=== PATIENT | male | born 1945 | race Caucasian/White ===

== ENCOUNTER 2021-02-02 08:30 | Outpatient (RCR) | payer OTHER, SELFPAY ==
--- NOTE | 2021-01-05 12:39 | PTOPEVAL ---
PHYSICAL THERAPY EVALUATION Thank you for referring William Cowan to [facility].? William was evaluated for the dx of low back and hip pain. The patient is scheduled to be seen for therapy? 2 x/week for 4 weeks. Please review, sign, date and return this plan of care PARVIZ. I agree with and certify that the following plan of care is medically necessary. Referring Physician Date Attending Provider: Monica Rivas NP *PT Outpatient Evaluation Start: 01/05/21 10:21 Freq: Status: Active Protocol: Document 01/05/21 10:21 MLV (Rec: 01/05/21 11:24 [facility] [id number]) Therapy Assessment Status Assessment Status Assessment Status Evaluation Evaluation Information Problem Diagnosis right hip and low back pain Cause no injury Additional Evaluation Detail The pt reports having some right low back trouble years ago and had PT-got better. The patient had no trouble until September 2020. The pain is at his right posterior hip to his knee and has gotten worse and now goes to his eason and has tingling/numbness. 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 The patient has been doing more of it lately. The pt also does woodcarving 1x a week and is mostly sitting. The patient does the yardwork and some cooking. The patient has pain at ant hip and SI on the right, while sitting and has pain increase when going from sit to stand. Subjective Information The pt denies hx of OA but has Query Text:As Reported By Patient/ had no recent tests. Family Diagnostic Tests X-Rays For This Problem No MRI For This Problem No Other Tests For This Problem No Pain Assessment Timing of Pain Assessment Timing of Pain Assessment Assessment Pain Scale Pain Scale Used Numeric (1 - 10) Self Report Pain Assessment Right Groin Reported Pain Level 3 Pain Description Pinching,Soreness Radicular Pain Location right leg radicular pain to eason with sit to stand Pain Frequency Acute Other Pain Description 6 with sit to stand Pain Aggravating Factors
--- NOTE | 2021-02-02 14:29 | PTOPEVAL ---
PHYSICAL THERAPY EVALUATION Thank you for referring William Cowan Jr. to [facility] The patient has completed 9 visits for the dx of back and right hip pain. Most goals are met but pain relief is limited. Recommend possible pain management for treatment if MD agrees. [facility]OR PT. Please review, sign, date and return this plan of care PARVIZ. I agree with and certify the following plan of care. Referring Physician Date Attending Provider: Monica Rivas NP Referring Provider: *PT Outpatient Discharge Start: 01/05/21 10:21 Freq: Status: Active Protocol: Document 02/02/21 14:11 MLV (Rec: 02/02/21 14:29 MLV [id number]) Therapy Assessment Status Assessment Status Assessment Status Discharge Evaluation Information Problem Diagnosis right hip and low back pain Cause no injury Additional Evaluation Detail The patient reports his pain has had times where his pain is less but for the last few days, his pain has returned despite his therapy and has not done anything to provoke increased pain. The patient agrees that he would like to discuss other options for relief with the doctor. The patient reports compliance with his exercises and does get some temporary relief with them. The patient reports the pain continues to be at his right hip and into his thigh, and mostly occurs when trying to sit for even short lengths of time. The patient gets relief of symptoms when doing shallow squats or hip extension exercises. Pain Assessment Timing of Pain Assessment Timing of Pain Assessment Assessment Pain Scale Pain Scale Used Numeric (1 - 10) Self Report Pain Assessment Right Groin Reported Pain Level 0 Pain Description Aching Pain Frequency Acute,Chronic Other Pain Description 4 with sitting Pain Aggravating Factors Sitting Pain Behaviors Restless Right Back Reported Pain Level 2 Pain Frequency Acute,Chronic Other Pain Description 5 with activity/sitting Pain Aggravating Factors Sitting Pain Behaviors Restless Pain Score Pain Score 0,2: Self Report
== END 2021-03-21 11:16 | disposition home or self-care (01) ==
LOC: ANHPT 08:30
PROVIDERS: PCP Internal Medicine; Visit Provider Nurse Practitioner
DX: M25.551 Pain in right hip (principal); M54.5 Low back pain
CPT/HCPCS: 97014; 97110; 97140; 97162; G0283

== ENCOUNTER → 2021-02-22 07:13 | Outpatient (CLI) | payer OTHER, SELFPAY ==
--- NOTE | ~2021-02-22 | MR_ITS ---
EXAMINATION: MR lumbar spine wo con DATE: 02/22/2021 08:10 INDICATION: Lumbar radiculopathy. TECHNIQUE: Magnetic resonance imaging (MRI) of the lumbar spine was performed without intravenous con trast. Sequences included sagittal T2-weighted FSE, sagittal T2-weighted FS FSE, sagittal T1-weighted FSE, and axial T2-weighted FSE. COMPARISON: None FINDINGS: There is 10 degrees dextroscoliosis of thoracolumbar spine. There is mild chronic anterior wedging of T11 vertebral body. There is moderately decreased disc height at L3-L4 and mildly decrease d disc height at L4-L5 and L5-S1. The distal spinal cord signal intensity is normal. The conus medull hunter is at L1-L2. The following disc levels are specifically discussed: L1-L2: The disc is bulging. There is mild bilateral facet joint osteoarthritis. There is mild left ne ural foraminal stenosis. There is mild central canal stenosis. L2-L3: The disc does not extend beyond the endplate margin. There is mild bilateral facet joint osteo arthritis. There is no neural foraminal stenosis. There is no central canal stenosis. L3-L4: The disc is bulging and has an annular fissure. There is moderate right and mild left facet vimal int osteoarthritis. There is mild bilateral neural foraminal stenosis. There is mild central canal st enosis. L4-L5: The disc is bulging with superimposed right foraminal extrusion. There is moderate bilateral f acet joint osteoarthritis. There is moderate right and mild left neural foraminal stenosis. There is mild central canal stenosis. There is moderate stenosis of right lateral recess. L5-S1: The disc is bulging. There is moderate bilateral facet joint osteoarthritis. There is mild compa ateral neural foraminal stenosis. There is no central canal stenosis. IMPRESSION: 1. Moderate lumbar spondylosis. 2. Thoracolumbar dextroscoliosis. Reviewed, dictated and finalized at location A. 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
--- NOTE | ~2021-02-22 | XR_ITS ---
EXAMINATION: XR sacroiliac joints min 3V INDICATION: Sacroiliac joint pain TECHNIQUE: Three views of the sacroiliac joints are obtained on four radiographs. COMPARISON: None available FINDINGS: Bone alignment is normal. There is no fracture. There is no abnormal sclerosis or erosion o f the sacroiliac joints. Phleboliths are noted in the pelvis. There is mild osteoarthritis of the hip s. IMPRESSION: 1. No acute osseous abnormality. Reviewed, dictated and finalized at location B. 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
== END ==
PROVIDERS: PCP Internal Medicine; Visit Provider Nurse Practitioner Family
DX: M53.3 Sacrococcygeal disorders, not elsewhere classified (principal); M47.26 Other spondylosis with radiculopathy, lumbar region
CPT/HCPCS: 72148; 72202

== ENCOUNTER 2021-03-16 01:01 | Day surgery (SDC) | payer OTHER, SELFPAY ==
[2021-03-01 08:22] VITALS: BMI 25.9
--- NOTE | 2021-03-15 13:18 | WPDANESEPPF ---
Anes - Initial Pre Proc Eval Procedure: Operation Date: 03/16/21 08:00 Proposed Procedures p Screening Colonoscopy - Dutch Aguiar MD Date/Time: 03/15/21 13:18 Surgeon: Dutch Aguiar MD Pre Op Diagnosis: neoplasm screening Patient Data Age: 75 Gender: M Height: 1.7 m Weight: 75 kg Allergies Allergy/AdvReac Type Severity Reaction Status Date / Time Penicillins Allergy Mild Rash Verified 03/16/21 06:53 Home Medications Medication Instructions Recorded Confirmed Type Saccharomyces boulardii 250 mg 250 mg PO DAILY 12/09/20 03/01/21 History capsule biotin 5 mg capsule 5 mg PO DAILY 12/09/20 03/01/21 History calcium carbonate-vitamin D3 500 1 cap PO DAILY 12/09/20 03/01/21 History mg (1,250 mg)-50 unit capsule guaifenesin 600 mg tablet, 600 mg PO DAILY PRN tablet 12/09/20 03/01/21 History extended release 12 hr histamine dihydrochloride 0.025 % 1 applic TOPICAL DAILY 12/09/20 03/01/21 History topical cream loratadine 10 mg tablet 10 mg PO DAILY 12/09/20 03/01/21 History multivitamin 1 tablet PO DAILY 12/09/20 03/01/21 History omega-3 fatty acids 1,000 mg 300 mg PO DAILY cap 12/09/20 03/01/21 History capsule tamsulosin 0.4 mg capsule 0.4 mg PO DAILY 12/09/20 03/01/21 History fluticasone propionate 50 1 spray INTRANASAL DAILY #16 g 12/31/20 03/01/21 Rx mcg/actuation nasal spray,suspension triamcinolone acetonide 0.1 % 1 applic TOPICAL BID #80 g 12/31/20 03/01/21 Rx topical cream azelastine 1 spray INTRANASAL Q12H 03/01/21 03/01/21 History terbinafine HCl 250 mg PO DAILY 03/01/21 03/01/21 History Patient hx anesthesia problems: none Family hx anesthesia problems: none Results Review: All pre-operative results and documents have been reviewed as part of the pre-operative evaluation. [facility] Past Medical History Medical History (Updated 03/15/21 @ 13:18 by Colin Beasley DO) Allergies Arthritis BPH (benign prostatic hyperplasia) GERD (gastroesophageal reflux disease) IBS (irritable bowel syndrome) MOE (obstructive sleep apnea) Surgical History Surgical History (Updated 12/09/20 @ 10:03 by Milagros Saunders) History of cataract removal with insertion of prosthetic lens left eye Family History Family History (Updated 12/09/20 @ 09:53 by Milagros Saunders) Father Diabetes mellitus Parkinsons Mother Depression Anxiety Alzheimers disease Grandparent Carcinoma of colon Malignant neoplasm of prostate Cardiovascular disease Social History Social History (Updated 12/09/20 @ 09:56 by Milagros Saunders) Social History: drinks 3-4 cups of tea daily and cola with alcohol Smoking status: Never smoker Alcohol intake: former Drinks per week: 7 Alcohol use details: shots of scotch or rum qd with food Living arrangements: with family Spiritual care concerns: No Anes - Eval Final PreProcedure Day of Procedure 03/15/21 13:18 Patient weight: overweight Heart: regular rate and rhythm Lungs: clear to auscultation and normal air movement Airway: Mallampati scale class II Neurological: alert and oriented Last oral intake: >/= 8 hours ASA classification: III Emergent: no Anesthetic plan: proceed Anesthesia type and monitoring: general GIVS and standard monitoring Results Review: All pre-operative results and documents have been reviewed as part of the pre-operative evaluation. Informed Consent: The patient's anesthetic plan and its attendant risks and benefits were discussed with the patient/family/POA. Questions were solicited and answers provided to the satisfaction of the patient/family/POA.
--- NOTE | 2021-03-15 15:13 | PM.HPGS ---
History of Present Illness History of Present Illness Consent: Risks, benefits, and alternatives have been discussed and questions answered. Patient agrees to proceed with procedure. Chief complaint: neoplasm screening Narrative: William Cowan Jr. is a 75 year old male Referred for colon cancer screening. Review of Systems Review of Systems: All systems reviewed & are unremarkable except as noted in HPI and below PMFSH Past Medical History Medical History Allergies Arthritis BPH (benign prostatic hyperplasia) GERD (gastroesophageal reflux disease) IBS (irritable bowel syndrome) MOE (obstructive sleep apnea) Surgical History Surgical History History of cataract removal with insertion of prosthetic lens left eye Family History Family History Father Diabetes mellitus Parkinsons Mother Depression Anxiety Alzheimers disease Grandparent Carcinoma of colon Malignant neoplasm of prostate Cardiovascular disease Social History Social History Social History: drinks 3-4 cups of tea daily and cola with alcohol Smoking status: Never smoker Alcohol intake: former Drinks per week: 7 Alcohol use details: shots of scotch or rum qd with food Living arrangements: with family Spiritual care concerns: No Meds Home Medications and Allergies Home Medications Medication Instructions Recorded Confirmed Type Saccharomyces boulardii 250 mg 250 mg PO DAILY 12/09/20 03/01/21 History capsule biotin 5 mg capsule 5 mg PO DAILY 12/09/20 03/01/21 History calcium carbonate-vitamin D3 500 1 cap PO DAILY 12/09/20 03/01/21 History mg (1,250 mg)-50 unit capsule guaifenesin 600 mg tablet, 600 mg PO DAILY PRN tablet 12/09/20 03/01/21 History extended release 12 hr histamine dihydrochloride 0.025 % 1 applic TOPICAL DAILY 12/09/20 03/01/21 History topical cream loratadine 10 mg tablet 10 mg PO DAILY 12/09/20 03/01/21 History multivitamin 1 tablet PO DAILY 12/09/20 03/01/21 History omega-3 fatty acids 1,000 mg 300 mg PO DAILY cap 12/09/20 03/01/21 History capsule tamsulosin 0.4 mg capsule 0.4 mg PO DAILY 12/09/20 03/01/21 History fluticasone propionate 50 1 spray INTRANASAL DAILY #16 g 12/31/20 03/01/21 Rx mcg/actuation nasal spray,suspension triamcinolone acetonide 0.1 % 1 applic TOPICAL BID #80 g 12/31/20 03/01/21 Rx topical cream azelastine 1 spray INTRANASAL Q12H 03/01/21 03/01/21 History terbinafine HCl 250 mg PO DAILY 03/01/21 03/01/21 History Allergies Allergy/AdvReac Type Severity Reaction Status Date / Time Penicillins Allergy Mild Rash Verified 03/16/21 06:53 Exam Resp: Auscultation: clear to auscultation bilaterally Cardio: Rate: regular rate Rhythm: regular rhythm GI: GI Palp: Yes Soft to palpation and No Tenderness to palpation present (GI) Assessment and Plan Assessment and plan (1) Screening for colon cancer: Code(s): Z12.11 - Encounter for screening for malignant neoplasm of colon Status: Acute Assessment and Plan: Colonoscopy with possible biopsy or polypectomy or cautery or injection of substances.
[2021-03-16 06:55] VITALS: BP 142/64; PULSE 61; RESP 20; TEMP 36.7; O2SAT 99; BMI 25.2
[2021-03-16] MEDS: LACTATED RINGERS 1,000 ML 150 ML IV CONT (07:04)
[2021-03-16 08:25] VITALS: BP 105/57; PULSE 53; RESP 14; O2SAT 98
[2021-03-16 08:35] VITALS: BP 114/71; PULSE 58; RESP 19; O2SAT 99
[2021-03-16 08:45] VITALS: BP 133/70; PULSE 49; RESP 18; O2SAT 99
== END 2021-03-16 08:54 | disposition home or self-care (01) ==
PROVIDERS: PCP Internal Medicine; Visit Provider Internal Medicine Gastroenterology
PROC: 0DJD8ZZ Inspection of Lower Intestinal Tract, Via Natural or Artificial Opening Endoscopic (ICD-10-PCS; CPT 45378; principal; 2021-03-16 08:00)
DX: Z12.11 Encounter for screening for malignant neoplasm of colon (principal); K57.30 Diverticulosis of large intestine without perforation or abscess without bleeding; Z86.010 Personal history of colon polyps; K58.9 Irritable bowel syndrome, unspecified; N40.0 Benign prostatic hyperplasia without lower urinary tract symptoms; K21.9 Gastro-esophageal reflux disease without esophagitis; G47.33 Obstructive sleep apnea (adult) (pediatric)
CPT/HCPCS: G0105; J2704; J7120

== ENCOUNTER 2023-04-10 00:53 | Day surgery (SDC) | payer OTHER, SELFPAY ==
[2023-03-21 12:59] VITALS: BMI 27.8
--- NOTE | 2023-04-06 08:28 | SUR.PREOP ---
Patient called regarding upcoming procedure. Reviewed preop instructions, appointment times, and procedure prep.
--- NOTE | 2023-04-06 12:48 | PM.HPGS ---
History of Present Illness History of Present Illness Consent: Risks, benefits, and alternatives have been discussed and questions answered. Patient agrees to proceed with procedure. Chief complaint: GERD Narrative: William Cowan Jr. is a 77 year old male who?has difficulty with swallowing.? He feels that there is a great deal of phlegm that accumulates in his throat.? He takes 3 different nasal inhalers for allergies. His issues are particularly bad meal times where it gives him the sensation that if he swallows and tries to breathe at the same time that something will go down the wrong way.? It also seems to make him gag at times.? While he is trying to eat he will find himself coughing spontaneously.? He has not had issues with food getting stuck on swallowing.? He does not get heartburn frequently but he has been on famotidine 10 mg a day for a few years, And recently increased it to 40 mg without any significant difference. Also, I had asked him to hold all acid reducers for a week or so prior to this procedure and he has not noticed any worsening of symptoms. He does however often get a queasy stomach which he thinks may be due to nerves. Review of Systems Review of Systems: All systems reviewed & are unremarkable except as noted in HPI and below PMFSH Past Medical History Medical History Allergies Arthritis BPH (benign prostatic hyperplasia) Enlarged prostate GERD (gastroesophageal reflux disease) IBS (irritable bowel syndrome) MOE (obstructive sleep apnea) Surgical History Surgical History History of cataract removal with insertion of prosthetic lens left eye Family History Family History Father Diabetes mellitus Parkinsons Mother Depression Anxiety Alzheimers disease Grandparent Carcinoma of colon Malignant neoplasm of prostate Cardiovascular disease Social History Social History Social History: drinks 3-4 cups of tea daily and cola with alcohol Smoking status: Never smoker Alcohol intake: current Drinks per week: 3 Alcohol use details: shots of scotch or rum qd with food Substance use type: does not use Living arrangements: with family Spiritual care concerns: No Meds Home Medications and Allergies Home Medications Medication Instructions Recorded Confirmed Type Saccharomyces boulardii 250 mg 250 mg PO DAILY 12/09/20 04/10/23 History capsule (Probiotic (S.boulardii)) calcium carbonate-vitamin D3 500 1 cap PO DAILY 12/09/20 04/10/23 History mg (1,250 mg)-50 unit capsule omega-3 fatty acids 1,000 mg 300 mg PO DAILY 12/09/20 04/10/23 History capsule (Fish Oil Concentrate) triamcinolone acetonide 0.1 % 1 applic topical BID #80 grams 12/31/20 04/10/23 Rx topical cream azelastine 137 mcg (0.1 %) nasal 1 spray intranasal Q12H 03/01/21 04/10/23 History spray aerosol terbinafine HCl 250 mg tablet 250 mg PO DIRECTED 03/01/21 04/10/23 History fluticasone propionate 50 1 spray intranasal DAILY #16 grams 10/16/22 04/10/23 Rx mcg/actuation nasal spray,suspension (Allergy Relief (fluticasone)) carboxymethylcellulose sodium 0.5 1 drp EACH EYE 4-6XD PRN Dry Eyes 01/19/23 04/10/23 History % eye drops (Refresh Tears) qrloichd-jej-wqtqk acid 0.4 1 tablet PO DAILY 01/19/23 04/10/23 History mg-lycopene 300 mcg-lutein 250 mcg tablet (CertaVite Senior) famotidine 40 mg tablet 40 mg PO BID 03/20/23 04/10/23 History ipratropium bromide 42 mcg (0.06 2 spray intranasal TID 03/20/23 04/10/23 History %) nasal spray tamsulosin 0.4 mg capsule (Flomax) 0.4 mg PO DAILY 03/20/23 04/10/23 History Allergies Allergy/AdvReac Type Severity Reaction Status Date / Time gabapentin Allergy Intermediate Rash Verified 04/10/23 06:23 Penicillins Allergy Mi
[2023-04-10 06:25] VITALS: BP 137/63; PULSE 55; RESP 17; TEMP 36.1; O2SAT 96; BMI 27.4
[2023-04-10] MEDS: LACTATED RINGERS 1,000 ML 150 ML IV CONT (06:38)
--- NOTE | 2023-04-10 07:11 | WPDANESEPPF ---
Anes - Initial Pre Proc Eval Procedure: Operation Date: 04/10/23 07:30 Proposed Procedures p Esophagogastroduodenoscopy - Dutch Aguiar MD Date/Time: 04/10/23 07:11 Surgeon: Dutch Aguiar MD Pre Op Diagnosis: GERD Patient Data Age: 77 Gender: M Height: 1.68 m Weight: 77.2 kg Last Vital Signs Temp 97 F L 04/10/23 06:25 Pulse 55 L 04/10/23 06:25 Resp 17 04/10/23 06:25 BP 137/63 04/10/23 06:25 Pulse Ox 96 04/10/23 06:25 O2 Del Method Room Air 04/10/23 06:25 Allergies Allergy/AdvReac Type Severity Reaction Status Date / Time gabapentin Allergy Intermediate Rash Verified 04/10/23 06:23 Penicillins Allergy Mild Rash Verified 04/10/23 06:23 Home Medications Medication Instructions Recorded Confirmed Type Saccharomyces boulardii 250 mg 250 mg PO DAILY 12/09/20 04/10/23 History capsule (Probiotic (S.boulardii)) calcium carbonate-vitamin D3 500 1 cap PO DAILY 12/09/20 04/10/23 History mg (1,250 mg)-50 unit capsule omega-3 fatty acids 1,000 mg 300 mg PO DAILY 12/09/20 04/10/23 History capsule (Fish Oil Concentrate) triamcinolone acetonide 0.1 % 1 applic topical BID #80 grams 12/31/20 04/10/23 Rx topical cream azelastine 137 mcg (0.1 %) nasal 1 spray intranasal Q12H 03/01/21 04/10/23 History spray aerosol terbinafine HCl 250 mg tablet 250 mg PO DIRECTED 03/01/21 04/10/23 History fluticasone propionate 50 1 spray intranasal DAILY #16 grams 10/16/22 04/10/23 Rx mcg/actuation nasal spray,suspension (Allergy Relief (fluticasone)) carboxymethylcellulose sodium 0.5 1 drp EACH EYE 4-6XD PRN Dry Eyes 01/19/23 04/10/23 History % eye drops (Refresh Tears) gyhudoaj-ict-otzig acid 0.4 1 tablet PO DAILY 01/19/23 04/10/23 History mg-lycopene 300 mcg-lutein 250 mcg tablet (CertaVite Senior) famotidine 40 mg tablet 40 mg PO BID 03/20/23 04/10/23 History ipratropium bromide 42 mcg (0.06 2 spray intranasal TID 03/20/23 04/10/23 History %) nasal spray tamsulosin 0.4 mg capsule (Flomax) 0.4 mg PO DAILY 03/20/23 04/10/23 History Patient hx anesthesia problems: none Family hx anesthesia problems: none Results Review: All pre-operative results and documents have been reviewed as part of the pre-operative evaluation. [facility] Past Medical History Medical History Allergies Arthritis BPH (benign prostatic hyperplasia) Enlarged prostate GERD (gastroesophageal reflux disease) IBS (irritable bowel syndrome) MOE (obstructive sleep apnea) Surgical History Surgical History History of cataract removal with insertion of prosthetic lens left eye Family History Family History Father Diabetes mellitus Parkinsons Mother Depression Anxiety Alzheimers disease Grandparent Carcinoma of colon Malignant neoplasm of prostate Cardiovascular disease Social History Social History Social History: drinks 3-4 cups of tea daily and cola with alcohol Smoking status: Never smoker Alcohol intake: current Drinks per week: 3 Alcohol use details: shots of scotch or rum qd with food Substance use type: does not use Living arrangements: with family Spiritual care concerns: No Anes - Eval Final PreProcedure Day of Procedure 04/10/23 07:11 Patient weight: normal Heart: regular rate and rhythm Lungs: clear to auscultation Airway: Mallampati scale class II Neurological: alert and oriented Last oral intake: >/= 8 hours ASA classification: III Emergent: no Anesthetic plan: proceed Anesthesia type and monitoring: general and standard monitoring Results Review: All pre-operative results and documents have been reviewed as part of the pre-operative evaluation. Informed Consent: The patient's anesthetic plan and its attendant risks
[2023-04-10 07:41] VITALS: BP 116/54; PULSE 60; RESP 17; O2SAT 98
[2023-04-10 07:51] VITALS: BP 115/64; PULSE 55; RESP 15; O2SAT 98
[2023-04-10 08:01] VITALS: BP 117/68; PULSE 57; RESP 20; O2SAT 98
== END 2023-04-10 08:15 | disposition home or self-care (01) ==
PROVIDERS: PCP Internal Medicine; Visit Provider Internal Medicine Gastroenterology
PROC: 0DJ08ZZ Inspection of Upper Intestinal Tract, Via Natural or Artificial Opening Endoscopic (ICD-10-PCS; CPT 43235; principal; 2023-04-10 07:30)
DX: K21.9 Gastro-esophageal reflux disease without esophagitis (principal); N40.0 Benign prostatic hyperplasia without lower urinary tract symptoms; G47.33 Obstructive sleep apnea (adult) (pediatric); K58.9 Irritable bowel syndrome, unspecified
CPT/HCPCS: 43239; 87081; J2001; J2704; J7120

== ENCOUNTER 2023-06-28 11:32 | Outpatient (CLI) | payer OTHER, SELFPAY ==
--- NOTE | 2023-07-02 22:15 | WPDSLEEPSTUD ---
Sleep Study Date of Study: 06/28/23 Ordering Provider: Chung Cornejo Interpreting Physician: Marga Dozier MD Sleep Study Type: Polysomnogram Height: 1.68 m Weight: 78.018 kg Body Mass Index: 27.7 Neck Circumference (inches): 14 [place]: 7 Reason for Sleep Study Non refreshing sleep, feeling tired even after waking History of obstructive sleep apnea, has been on CPAP Sleep History William Cowan is a 77-year-old man with a history of obstructive sleep apnea, on CPAP 5-6 years ago. He initially had under the nose mask, slept with his mouth open, used a chinstrap that led to him grinding his teeth. He tried different masks, had air blowing in his eyes and a lot of pain. His fullface mask had a problem with air leak. He has had a problem pulling his mask out at night which may be due to poor mask fit. He feels short of breath during the day, and he wonders if using PAP at night is making this worse. He was told that he swallows air at night, and this causes belching at night. He frequently wakes at night with heartburn, belching or coughing.??He does not snore and others do not tell him that he snores. He rarely has difficulty sleeping when he has a cold, fortunately has not had a cold in 6 years. He never has breathing problems at night. He never sweats excessively at night. He never notices his heart pounding or beating irregularly during the night. He frequently falls asleep during the day. He frequently falls asleep involuntarily, however never falls asleep while driving. He never experiences loss of muscle tone with strong emotion. He never has daytime difficulty at work due to excessive sleepiness. He never feels paralyzed on waking or falling asleep. He never experiences vivid dreams upon waking or falling asleep. He never feels afraid of going to sleep. He never has nightmares. He never recalls his dreams. He rarely has thoughts racing through his mind. He never feels sad or depressed. He occasionally feels anxiety. He occasionally notices parts of his body jerk. He never kicks during the night. He never feels crawling or aching feelings in his legs. He occasionally feels leg pain at night. He never has morning jaw pain, occasionally grinds his teeth at night. He rarely feels bothered by pain during the day, rarely awakened by pain during the night. He occasionally wakes up feeling stiff in the morning, and he rarely wakes feeling sore or achy. He occasional awakens with pain in his neck, spine, or joints. He has memory problems. Normal bedtime is between 8:30 p.m. and 9:30 p.m., usually falling asleep within a few minutes. Some nights, he wakes as many as 4-5 times to go to the bathroom. It takes him about 20 minutes to return to sleep. His normal wake time is between 4:00 a.m. and 4:30 a.m.. He keeps the same schedule on weekends. He estimates getting between 5 and 6 hours of sleep at night. He takes naps in the day, and he may feel refreshed after short 10-15 minute nap. He feels better in the afternoon compared to other times of day. He is drowsy upon awakening. Habits:??Tobacco: Never smoker Caffeine: 3-4 cups of tea Alcohol: 3 or 4 per week Recreational substances: none PMFSH Past Medical History Medical History Allergies Arthritis BPH (benign prostatic hyperplasia) Enlarged prostate GERD (gastroesophageal reflux disease) IBS (irritable bowel syndrome) MOE (obstructive sleep apnea) Surgical History Surgical History History of cataract removal with insertion of prosthetic lens left eye Family History Family History Father Diabetes mellitus Parkinsons Mother Depression Anxiety Alzheimers disease Grandparent Carcinoma of colon Malignant neoplasm of prostate Cardiovascular disease Social History Social History
[2023-07-02 22:35] VITALS: BMI 27.7
== END 2023-06-29 06:45 | disposition home or self-care (01) ==
LOC: ANHCSM 11:33
PROVIDERS: PCP Internal Medicine
DX: R06.3 Periodic breathing (principal)
CPT/HCPCS: 95810

== ENCOUNTER 2023-07-23 07:27 | Outpatient (CLI) | payer OTHER, SELFPAY ==
--- NOTE | 2023-07-23 07:39 | ECHO_ITS ---
Patient Info Name: William Cowan Age: 78 years : 1945 Gender: Male Ht: 66 in Wt: 170 lbs BSA: 1.91 m2 HR: 59 bpm BP: 144 / 72 mmHg Technical Quality: Fair Exam Date: 07/23/2023 7:48 AM Exam Location: Echo Lab Patient Status: Outpatient Admit Date: 07/23/2023 Staff Ordering Physician: Monica Rivas NP Supervisor [employer]: Niurka Kilgore RDCS Attending Provider: Juarez Ahuja DO Referring Physician: Rob REY; Exam Type: CA echo doppler color flow Study Info Complete two-dimensional, color flow and Doppler transthoracic echocardiogram is performed. Summary 1. Complete two-dimensional, color flow and Doppler transthoracic echocardiogram is performed. 2. Left ventricular chamber dimension is normal. 3. Left ventricular systolic function is normal, estimated at 65-70%. 4. The left ventricular diastolic function is grade I diastolic dysfunction. 5. Global longitudinal strain is normal at -19.9%. 6. There is mild aortic valve sclerosis. 7. There is trace mitral valve regurgitation. 8. There is mild tricuspid valve regurgitation. 9. No pulmonary hypertension, estimated pulmonary arterial systolic pressure is 31 mmHg. Left Ventricle Tissue doppler E/e' was not performed. Global longitudinal strain is normal at -19.9%. Left ventricular chamber dimension is normal. Left ventricular systolic function is normal, estimated at 65-70%. The left ventricular diastolic function is grade I diastolic dysfunction. Right Ventricle Right ventricular systolic function is normal and with normal TAPSE 2.4 cm. Right ventricular chamber dimension is normal. Left Atria Left atrial chamber dimension is normal. Right Atria Right atrial chamber dimension is normal. Aortic Valve The aortic valve is trileaflet. There is mild aortic valve sclerosis. There is no aortic valve stenosis. There is no aortic valve regurgitation. Pulmonic Valve There is no pulmonic regurgitation. Mitral Valve There is no mitral valve stenosis. There is trace mitral valve regurgitation. Tricuspid Valve There is mild tricuspid valve regurgitation. No pulmonary hypertension, estimated pulmonary arterial systolic pressure is 31 mmHg. Pericardium/Pleural There is no pericardial effusion. Inferior Vena Cava Normal inferior vena cava with >50% collapse upon inspiration consistent with normal right atrial pressure, 5 mmHg. Aorta The aortic root size at the sinus of Valsalva is normal. Left Ventricular Outflow Tract Name Value Normal LVOT 2D LVOT Diameter 1.9 cm LVOT Doppler LVOT Peak Gradient 4 mmHg LVOT Mean Gradient 2 mmHg LVOT VTI 24 cm LVOT VTI/AV VTI Ratio 1.2 LVOT Stroke Volume 65 ml LVOT CO 3.6 l/min LVOT CI 1.9 l/min/m2 Pulmonic Valve Name Value Normal RVOT Doppler
== END 2023-07-23 07:28 | disposition home or self-care (01) ==
PROVIDERS: PCP Internal Medicine; Visit Provider Internal Medicine
DX: R06.3 Periodic breathing (principal); I36.1 Nonrheumatic tricuspid (valve) insufficiency
CPT/HCPCS: 93306

== ENCOUNTER 2023-08-01 08:30 | Outpatient (CLI) | payer OTHER, SELFPAY ==
--- NOTE | 2023-08-09 13:21 | WPDSLEEPSTUD ---
Sleep Study Date of Study: 08/01/23 Ordering Provider: Bebe Chrsitie DO Interpreting Physician: Marga Dozier MD Sleep Study Type: ASV Height: 1.68 m Weight: 77.564 kg Body Mass Index: 27.6 Neck Circumference (inches): 14 [place]: 7 Reason for Sleep Study 06/28/2023 basic sleep study showing moderate central sleep apnea, AHI 28.2, central AHI 19.6 which is over half total AHI, desaturation to 88%. He returns for a titration. He has a history of obstructive sleep apnea, has been on CPAP, increased symptoms. 07/22/2023 - echo shows EF 64-70% Sleep History William SchafferJr ganesh is a 77-year-old man with a history of obstructive sleep apnea, on CPAP 5-6 years ago. He initially had under the nose mask, slept with his mouth open, used a chinstrap that led to him grinding his teeth. He tried different masks, had air blowing in his eyes and a lot of pain. His fullface mask had a problem with air leak. He has had a problem pulling his mask out at night which may be due to poor mask fit. He feels short of breath during the day, and he wonders if using PAP at night is making this worse. He was told that he swallows air at night, and this causes belching at night. He frequently wakes at night with heartburn, belching or coughing.??He does not snore and others do not tell him that he snores. He rarely has difficulty sleeping when he has a cold, fortunately has not had a cold in 6 years. He never has breathing problems at night. He never sweats excessively at night. He never notices his heart pounding or beating irregularly during the night. He frequently falls asleep during the day. He frequently falls asleep involuntarily, however never falls asleep while driving. He never experiences loss of muscle tone with strong emotion. He never has daytime difficulty at work due to excessive sleepiness. He never feels paralyzed on waking or falling asleep. He never experiences vivid dreams upon waking or falling asleep. He never feels afraid of going to sleep. He never has nightmares. He never recalls his dreams. He rarely has thoughts racing through his mind. He never feels sad or depressed. He occasionally feels anxiety. He occasionally notices parts of his body jerk. He never kicks during the night. He never feels crawling or aching feelings in his legs. He occasionally feels leg pain at night. He never has morning jaw pain, occasionally grinds his teeth at night. He rarely feels bothered by pain during the day, rarely awakened by pain during the night. He occasionally wakes up feeling stiff in the morning, and he rarely wakes feeling sore or achy. He occasional awakens with pain in his neck, spine, or joints. He has memory problems. Normal bedtime is between 8:30 p.m. and 9:30 p.m., usually falling asleep within a few minutes. Some nights, he wakes as many as 4-5 times to go to the bathroom. It takes him about 20 minutes to return to sleep. His normal wake time is between 4:00 a.m. and 4:30 a.m.. He keeps the same schedule on weekends. He estimates getting between 5 and 6 hours of sleep at night. He takes naps in the day, and he may feel refreshed after short 10-15 minute nap. He feels better in the afternoon compared to other times of day. He is drowsy upon awakening. Habits:??Tobacco: Never smoker Caffeine: 3-4 cups of tea Alcohol: 3 or 4 per week Recreational substances: none PMFSH Past Medical History Medical History (Updated 08/10/23 @ 13:30 by Marga Dozier MD) Allergies Arthritis BPH (benign prostatic hyperplasia) Central sleep apnea with Reji-Abarca respiration Enlarged prostate GERD (gastroesophageal reflux disease) IBS (irritable bowel syndrome) MOE (obstructive sleep apnea) Surgical History Surgical History History of cataract removal with insertion of prosthetic lens left eye Family History Family History (Reviewed 08/09/23 @ 13:25 by Marga Vazquez
[2023-08-13 10:21] VITALS: BMI 27.6
== END 2023-08-02 06:28 | disposition home or self-care (01) ==
LOC: ANHCSM 08:31
PROVIDERS: PCP Internal Medicine; Visit Provider Family Medicine
DX: R06.3 Periodic breathing (principal)
CPT/HCPCS: 95811

== ENCOUNTER 2024-02-27 11:20 | Outpatient (CLI) | payer OTHER, SELFPAY | END 2024-02-27 11:21 | disposition home or self-care (01) | LOC: ANHGOSHLAB 11:21 | PROVIDERS: PCP Family Medicine; Visit Provider Family Medicine | DX: D64.9 Anemia, unspecified (principal) | CPT/HCPCS: 36415; 82728 ==

== ENCOUNTER 2025-02-25 08:15 | Outpatient (CLI) | payer OTHER, SELFPAY ==
--- OUTSIDE RECORDS SUMMARY | 2016-11-15 05:26 | XMS_ITS | Continuity of Care Document ---
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 Name Role Phone Juarez Zhou MD Unavailable Unavailable Allergies, Adverse Reactions, Alerts Substance Reaction Status Criticality Penicillins Unknown Active No Information Medications Medication Instructions Dosage Effective Dates (start - stop) Status Comments No Drug Therapy Prescribed Procedures Procedure Date OFFICE/OUTPATIENT VISIT [facility] Advance Directives Directive Yes / No Effective Date File Name No Information Encounters Encounter Description Practice Location Reason(s) For Visit Diagnoses Date Provider Providers Copied on Encounter [facility], [address] [place] [address], [facility], tel:[phone] [facility] Degenerative arthritis of finger, right [address] [place], [place], [id number] . tel: [phone] OFFICE/OUTPA TIENT VISIT [facility], [address] [place] [address], [facility], tel:[phone] [facility] eval right shoulder/r ight hand (chief complaint) Primary osteoarthritis of right shoulderDegener ative arthritis of finger, right [address] [place], [place], [id number] . tel: [phone] Family History Family Member Type Diagnosis Age At Onset Sister Problem (finding) Alive and well Brother Problem (finding) Alive and well Immunizations Vaccine Date Status Comments pneumococcal polysaccharide vaccine, 23 valent administered Source: Other Provid er Payers Payer name Insurance type Covered republican ID Authoriza tion(s) Elvira OT [id number] Social History Type Description Quantity Date Captured Comments Alcohol Use Details Unknown Caffeine Use Details Unknown Tobacco Use Status No Information Smoking Status No Information Sex Male Chief Complaint And Reason For Visit No Information Reason For Referral Reason For Referral No Information Plan Of Treatment Date Type Action Status Referral Ordered: RADEX CANDY COMPL MINIMUM 2 VIEWS RT ordered Referral Ordered: RADEX FNGR MINIMUM 2 VIEWS RT ordered History Of Present Illness Encounter Date Complaint History Of Prese nt Illness eval right shoulder/right hand Functional Status Date Functional Assessmen t No Information Medications Administered Medication Instructions Dosage Effective Dates (start - stop) Status Comments No Drug Therapy Prescribed Instructions Date Instruction Additional Infor mation No Information Assessments Type Assessment Date assessment Degenerative arthritis of finger , right Patient Care Teams Name Effective Dates (start - stop) Status Members No Information
--- OUTSIDE RECORDS SUMMARY | 2023-09-29 15:30 | XMS_ITS ---
Author Organization [facility] [place] ([address]) Address [address] [place] [address] Care Team Providers Care Towel Hemmer Name Role Phone Juarez Ahuja Primary Care Provider Unavailab Heath Bryant Unavailable [phone] [facility], Provider Unavailable Unavailab le Allergies Allergen (clinical drug ingredient) Drug/Non Drug Allergy documented on EMR Reaction Allergy Type Onset Date Status penicillin V Penicillin V Potassium rash Drug Allergy [facility] Conversion Encounter Medications Medication SIG (Take, Route, Frequency, Duration) Notes Start Date End Date Status Clindamycin Phosphate 1 % 1 devang applied topically 2 times a day; Duration: 30 day(s) Active Clobetasol Propionate 0.05 % 1 devang applied topically 2 times a day; Duration: 14 day(s) Active Cert[employer]ite Senior/Antioxidant *Please review and pick correct strength-formulat ion from [employer] options. If intended option is not shown, discontinue and re-order from Quick Search* Active Multivitamin MULTIPLE VITAMINS 1 CAP(S) ORALLY ONCE A DAY; Duration: 30 DAY(S) *Please review and pick correct strength-formulat ion from [employer] options. If intended option is not shown, discontinue and re-order from Quick Search* Active Loratadine 10 MG 1 tab(s) orally once a day Active Triamcinolone Acetonide 0.1 % 1 devang applied topically as needed; Duration: 7 days Active Ipratropium [place] 0.06 % 2 spray(s) intranasally 3 times a day; Duration: 90 days Active Cetirizine HCl 10 MG 1 tab(s) orally once a day; Duration: 30 days Active Calcium Carbonate 850 MG 1 TAB(S) CHEWED ONCE A DAY *Please review and pick correct strength-formulat ion from [employer] options. If intended option is not shown, discontinue and re-order from Quick Search* Active Vitamin D3 500mg *Please review and pick correct strength-formulat ion from [employer] options. If intended option is not shown, discontinue and re-order from Quick Search* Active Azelastine HCl 137 MCG/SPRAY 2 spray(s) intranasally 2 times a day; Duration: 90 days Active Famotidine 20 MG 1 tab(s) orally 2 times a day Active VANICREAM MOISTURIZING CREAM N/A NECESSARY APPLY TO EXTERNAL SURFACES OFTEN NEEDED TO FACE, HANDS, FEET OR BODY FOR DAILY USE BY THE ENTIRE FAMILY; Duration: 30 DAY(S) *Please review for potential replacement for e-prescription and drug interaction check* Active Azelastine HCl 137 MCG/SPRAY 2 spray(s) intranasally 2 times a day; Duration: 30 day(s) Not-Taking Azelastine HCl 137 MCG/SPRAY 2 spray(s) intranasally 2 times a day; Duration: 90 days Not-Taking Fluticasone Propionate 50 MCG/ACT 1 spray(s) in each nostril once a day; Duration: 30 day(s) Active Tamsulosin HCl 0.4 MG 1 cap(s) orally once a day; Duration: 30 day(s) Active Terbinafine HCl 250 MG 1 tab(s) orally once a day; Duration: 42 day(s) Active Triamcinolone Acetonide 0.1 % as directed Active Social History Sex Assigned At : Social History Observation Description Sex Assigned At Male Encounters Encounter Location Date Provider Diagnosis [facility] Maldonado [address] [place] [id number] 09/29/2023 Provider [facility] Vasomotor rhinitis J30.0 ; Allergic rhinitis, unspecified J30.9 ; Gastro-esophageal reflux disease without esophagitis K21.9 and 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 Assessments Encounter Date Diagnosis (ICD Code) Assessment Notes Treatment Notes Treatment Clinical Notes Section Notes 09/29/2023 Vasomotor rhinitis (ICD-10 - J30.0) 09/29/2023 Allergic rhinitis, unspecified (ICD-10 - J30.9) 09/29/2023 Gastro-esophageal reflux disease without esophagitis (ICD-10 - K21.9) 09/29/2023 Atopic neurodermatitis (ICD-10 - L20.81) Plan Of Treatment Medication Medication Name Sig Start Date Stop Date Notes Triamcinolone Acetonide 0.1 % 1 devang applied topically as needed; Duration: 7 days Ipratropium [place] 0.06 % 2 spray(s) intranasally 3 times a day; Duration: 90 days Cetirizine HCl 10 MG 1 tab(s) orally onc e a day; Duration: 30 days Azelastine HCl 137 MCG/SPRAY 2 spray(s) intranasally 2 times a day; Duration: 90 days Famotidine 20 MG 1 tab(s) orally 2 times a day VANICREAM MOISTURIZING CREAM N/A NECESSARY APPLY TO EXTERNAL SURFACES OFTEN NEEDED TO FACE, HANDS, FEET OR BODY FOR DAILY USE BY THE ENTIRE FAMILY; Duration: 30 DAY(S) *Please review for potential replacement for e-prescription and drug interaction check* Next Appt Details Provider Name:Mila cheung, 07/27/2025 07:30:00 AM, [address] [facility], [address], [place], [address], Progress Notes * William COWAN JrDOB:[birth year] (79 yo M)Acc No.[id number]:09/29/2023 Patient: Monie William TOUSSAINT Jr Provider: Elizabeth Gregg :1945 A ge:78 Y S ex:Male Date:09/29/2023 Address:[address] [place], [place] [id number] Pcp:Juarez Ahuja Subjective: * Chief Complaints: * 1 . Multum To Medispan Conversion Encounter. * Medical History: * Medications: T aking Vitamin D3 , Notes to Pharmacist: 500mg *Please review and pick correct strength-formulation from [employer] options. If intended option is not shown, discontinue and re-order from Quick Search*, Taking Calcium Carbonate 850 MG TABLET, CHEWABLE 1 TAB(S) CHEWED ONCE A DAY , Notes to Pharmacist: *Please review and pick correct strength-formulation from [employer] options. If intended option is not shown, discontinue and re-order from Quick Search*, Taking Loratadine 10 MG Tablet 1 tab(s) orally once a day , Taking Multivitamin MULTIPLE VITAMINS CAPSULE 1 CAP(S) ORALLY ONCE A DAY , Notes to Pharmacist: *Please review and pick correct strength-formulation from [employer] options. If intended option is not shown, discontinue and re-order from Quick Search*, Taking CertaVite Senior/Antioxidant , Notes to Pharmacist: *Please review and pick correct strength-formulation from [employer] options. If intended option is not shown, discontinue and re-order from Quick Search*, Taking Clobetasol Propionate 0.05 % Cream 1 devang applied topically 2 times a day , Taking Clindamycin Phosphate 1 % Gel 1 devang applied topically 2 times a day , Taking Triamcinolone Acetonide 0.1 % Paste as directed , Taking Terbinafine HCl 250 MG Tablet 1 tab(s) orally once a day , Taking Tamsulosin HCl 0.4 MG Capsule 1 cap(s) orally once a day , Taking Fluticasone Propionate 50 MCG/ACT Suspension 1 spray(s) in each nostril once a day , Not-Taking/PRN Azelastine HCl 137 MCG/SPRAY Solution 2 spray(s) intranasally 2 times a day , Not-Taking/PRN Azelastine HCl 137 MCG/SPRAY Solution 2 spray(s) intranasally 2 times a day * Allergies: P enicillin V Potassium: rash. Objective: * Vitals: Assessment: * Assessment: 1. V asomotor rhinitis - J30.0 (Primary) 2 . A llergic rhinitis, unspecified - J30.9 3 . G ramesh-esophageal reflux disease without esophagitis - K21.9 4 . A topic neurodermatitis - L20.81 Plan: * Treatment: 2. A llergic rhinitis, unspecified Continue Cetirizine HCl Tablet, 10 MG, 1 tab(s), orally, once a day, 30 days, 30, Refills 0. ? 3. G ramesh-esophageal reflux disease without esophagitis Continue Famotidine Tablet, 20 MG, 1 tab(s), orally, 2 times a day. 4. A topic neurodermatitis Continue VANICREAM MOISTURIZING CREAM MOISTURIZING CREAM, N/A, NECESSARY, APPLY TO EXTERNAL SURFACES OFTEN NEEDED TO FACE, HANDS, FEET OR BODY, FOR DAILY USE BY THE ENTIRE FAMILY, 30 DAY(S), 1 LB. (453 G), Refills PRN, Notes to Pharmacist: *Please review for potential replacement for e-prescription and drug interaction check*; C ontinue Triamcinolone Acetonide Ointment, 0.1 %, 1 devang, applied topically, as needed, 7 days, 1, Refills 0. * Billing Information: * Visit Code: * Procedure Codes: * Electronic signature of Nilam STAFFORD-Migration on 02/25/2025 at 08:20 AM FISHING CAPTAIN Sign off status: Pending * Provider: Elizabeth spain Migration Date: 0 09/29/2023 Generated for Darcy robles/Mariola/Gigi on: 1 04/27/2024 08:20 AM FISHING CAPTAIN
--- OUTSIDE RECORDS SUMMARY | 2024-12-22 11:30 | XMS_ITS ---
Author Organization [facility] ([address]) Address [address] [place] [address] Care Team Providers Care Greek Professor Name Role Phone Juarez Ahuja Primary Care Provider Unavailab Heath Bryant Unavailable [phone] Mila Aguirre Unavailable [phone] REASON FOR VISIT Vasomotor rhinitis, trialed ipratropium bromide which has significantly improved his symptoms of phlegm surrounding meals. He has continued use as-needed. Lately feels symptoms have started to worsen, however., History of ARC, on SCIT for ~ 9 years, continues Zyrtec with minimal symptoms., History of GERD, taking OTC Pepcid with benefit, has not seen GI in many years., Red, flat rash all over with flaking, s/p dermatology evaluation and currently using an array of creams, no interval issues. Medications Medication SIG (Take, Route, Frequency, Duration) Notes Start Date End Date Status Triamcinolone Acetonide 0.1 % 1 devang applied topically as needed; Duration: 7 days Active Tadalafil 5 MG 1 tablet as needed Orally Once a day Active Aspercreme Arthritis Pain 1 % as directed Externally Active CeraVe Itch Relief 1 % 1 application as needed Externally Three times a day Active Eczema Moisturizing 1 % as directed Externally Active FAMOTIDINE 20 mg 1 tab(s) orally 2 times a day Active AZELASTINE HYDROCHLORIDE NASAL 137 mcg/inh 2 spray(s) intranasally 2 times a day; Duration: 90 days Active VANICREAM MOISTURIZING CREAM N/A as necessary Apply to external surfaces as often as needed to face, hands, feet or body For daily use by the entire family; Duration: 30 day(s) Active CETIRIZINE 10 mg 1 tab(s) orally once a day; Duration: 30 days Active Ipratropium Alto 0.06 % 2 sprays in each nostril Nasally 2-3 times per day; Duration: 30 days Active Clindamycin Phosphate 1 % 1 devang applied topically 2 times a day; Duration: 30 day(s) Not-Taking Azelastine HCl 137 MCG/SPRAY 2 spray(s) intranasally 2 times a day; Duration: 90 days Not-Taking Vitamin D3 500mg *Please review and pick correct strength-formula tion from [place] options. If intended option is not shown, discontinue and re-order from Quick Search* Not-Taking Loratadine 10 MG 1 tab(s) orally once a day Not-Taking Azelastine HCl 137 MCG/SPRAY 2 spray(s) intranasally 2 times a day; Duration: 30 day(s) Not-Taking Clobetasol Propionate 0.05 % 1 devang applied topically 2 times a day; Duration: 14 day(s) Active Tamsulosin HCl 0.4 MG 1 cap(s) orally once a day; Duration: 30 day(s) Active Terbinafine HCl 250 MG 1 tab(s) orally once a day; Duration: 42 day(s) Not-Taking Fluticasone Propionate 50 MCG/ACT 1 spray(s) in each nostril once a day; Duration: 30 day(s) Active Pramipexole Dihydrochloride 0.25 MG Oral; Duration: 90 Days Active Cetirizine HCl 10 MG 1 tab(s) orally once a day; Duration: 30 days Active Ipratropium Alto 0.06 % 2 spray(s) intranasally 3 times a day; Duration: 90 days Active Famotidine 20 MG 1 tab(s) orally 2 times a day Active Calcium Carbonate 850 MG 1 TAB(S) CHEWED ONCE A DAY *Please review and pick correct strength-formula tion from [place] options. If intended option is not shown, discontinue and re-order from Quick Search* Active Multivitamin MULTIPLE VITAMINS 1 CAP(S) ORALLY ONCE A DAY; Duration: 30 DAY(S) *Please review and pick correct strength-formula tion from ShotSpotterspan options. If intended option is not shown, discontinue and re-order from Quick Search* Active Refresh Tears 0.5 % as directed Ophthalmic Active Astepro 205.5 MCG/SPRAY 2 sprays in each nostril Nasally Once a day Active Saccharomyces boulardii Active [place] 3-5-6-7-9 Fatty Acids - as directed Orally Active Biotin 5000 MCG as directed Sublingual Active Eucrisa 2 % 1 application Externally Twice a day Active Ketotifen Fumarate 0.035 % 1 drop into affected eye Ophthalmic Twice a day Active Social History Sex Assigned At : Social History Observation Description Sex Assigned At Male Encounters Encounter Location Date Provider Diagnosis [facility] [address] [address] 12/22/2024 Mila Aguirre Vasomotor rhinitis J 30.0 ; Allergic rhinitis, unspecified J30.9 ; Gastro-esophageal reflux disease without esophagitis K21.9 ; 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 and Elevated blood-pressure reading, without diagnosis of hypertension R03.0 Assessments Encounter Date Diagnosis (ICD Code) Assessment Notes Treatment Notes Treatment Clinical Notes Section Notes 12/22/2024 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 Using Pepcid prior to meals, which has been minimally beneficial. - Continue ipratropium bromide as-needed, discussed that based on PI safety and efficacy has not been established with use > 3 weeks. He voices understanding, wants to continue use. - Continue with Pepcid BID due to GERD. It has been many years since Petey last had evaluation with GI. He also reports occasional cough while eating, he is not sure if he notes difficulty swallow. No clear triggers or associated systemic symptoms. I again recommended GI consult, he is to speak to his PCP regarding a referral. He voiced understanding. Can also consider ENT consult, which Petey is interested in. Provided list of local ENTs. - Follow-up in 6 months for further evaluation and management 12/22/2024 Allergic rhinitis, unspecified (ICD-10 - J30.9) History of allergic rhinitis with SCIT x 9 years, in the 80's-90's. - Symptoms currently well controlled with daily Zyrtec, no longer using Flonase. - Will revisit in future if symptoms, as above, remain uncontrolled - but he has no desire to resume SCIT 12/22/2024 Gastro-esophageal reflux disease without esophagitis (ICD-10 - K21.9) History of GERD, with pior EGD studies. - Currently on probiotic and daily Pepcid. Still with frequent symptoms. - Discussed consult with GI, Petey is to discuss referral with his PCP 12/22/2024 Atopic neurodermatitis (ICD-10 - L20.81) History of eczema, previously controlled with moisturization and PRN TAC, today reports he has not used a topical steroid in some time. - Continues avoidance of all products with fragrances and dyes and daily bathing and moisturizing. - Continue triamcinolone as-needed, avoiding the face and genitals. 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 Continue serial checks and follow-up with PCP Plan Of Treatment Medication Medication Name Sig Start Date Stop Date Notes Triamcinolone Acetonide 0.1 % 1 devang appl ied topically as needed; Duration: 7 days FAMOTIDINE 20 mg 1 tab(s) orally 2 ti mes a day AZELASTINE HYDROCHLORIDE JESUS AL 137 mcg/inh 2 spray(s) intranasally 2 times a day; Duration: 90 days VANICREAM MOISTURIZING CREAM N/A as necessary Apply to external surfaces as often as needed to face, hands, feet or body For daily use by the entire family; Duration: 30 day(s) CETIRIZINE 10 mg 1 tab(s) orally once a day; Duration: 30 days Ipratropium Alto 0.06 % 2 sprays in e ach nostril Nasally 2-3 times per day; Duration: 30 days Treatment Notes Assessment Notes Vasomotor rhinitis Symptoms of phlegm production and some congestion after eating, have improved significantly with ipratropium bromide. Using Pepcid prior to meals, which has been minimally beneficial. - Continue ipratropium bromide as-needed, discussed that based on PI safety and efficacy has not been established with use > 3 weeks. He voices understanding, wants to continue use. - Continue with Pepcid BID due to GERD. It has been many years since Petey last had evaluation with GI. He also reports occasional cough while eating, he is not sure if he notes difficulty swallow. No clear triggers or associated systemic symptoms. I again recommended GI consult, he is to speak to his PCP regarding a referral. He voiced understanding. Can also consider ENT consult, which Petey is interested in. Provided list of local ENTs. - Follow-up in 6 months for further evaluation and management Allergic rhinitis, unspecified History of allergic rhinitis with SCIT x 9 years, in the 80's-90's. - Symptoms currently well controlled with daily Zyrtec, no longer using Flonase. - Will revisit in future if symptoms, as above, remain uncontrolled - but he has no desire to resume SCIT Gastro-esophageal reflux dis ease without esophagitis History of GERD, with pior EGD studies. - Currently on probiotic and daily Pepcid. Still with frequent symptoms. - Discussed consult with GI, Petey is to discuss referral with his PCP Atopic neurodermatitis History of eczema, previously controlled with moisturization and PRN TAC, today reports he has not used a topical steroid in some time. - Continues avoidance of all products with fragrances and dyes and daily bathing and moisturizing. - Continue triamcinolone as-needed, avoiding the face and genitals. 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 Vasomotor rhinitis, trialed ipratropium bromide which has significantly improved his symptoms of phlegm surrounding meals. He has continued use as-needed. Lately feels symptoms have started to worsen, however.. 2. History of ARC, on SCIT for ~ 9 years, continues Zyrtec with minimal symptoms.. 3. History of GERD, taking OTC Pepcid with benefit, has not seen GI in many years.. 4. Red, flat rash all over with flaking, s/p dermatology evaluation and currently using an array of creams, no interval issues.. * HPI: * Introduction: HPI: David hernandez Petey Camryn Wolff., a 78-year-old male with past medical history significant for BPH, GERD, MOE, and ARC previously on SCIT who returns for interval evaluation and management. He is alone for today's visit. Petey returns today reporting worsening nasal drainage. He admits to being out of ipratropium bromide, though feels he has had side effects from sertraline that was recently prescribed, which he feels worsened his drainage. At a prior visit he stated that ipratropium bromide made a huge difference. He states his GERD feels like it is well controlled on Pepcid BID. He has not had GI evaluation in years. He does report occasional coughing while eating, unclear on if he feels it is difficult to swallow at time. No associated systemic symptoms, no clear trigger. H is allergy symptoms are also under control, previously on SCIT for 9 years. He is taking Zyrtec daily with benefit. In terms of his rash, he was previously seen with a flat rash on his arms. Is seen at pain clinic and thought to be related to new medication from them. He was seen by dermatology who had him on an array of creams. Has since resolvedand he continues to follow with dermatology. H istorically, he gets a lot of mucous around back of throat. Feels like it slimes over. He has a hard time eating and breathing at the same time due to the phlegm. Sometimes goes into my wind-pipe and I have a coughing fit, to bring it back up. Symptoms have been present his whole life. Does not happen with each encounter. He denies any issues swallowing. No history of food sticking. He also has history of stomach problems in the 70's-80's. 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 No other issues and has not followed since. He also has history of eczema, currently well controlled with moisturization and PRN topical TAC. Additionally, he reports coming in contact with poison rosangela two weeks ago. He is applying Calmoseptine as-needed. Today, he reports no fevers, chills, night sweats or other constitutional symptoms. * ROS: A LLERGY: itchy eyes Y es. P ositive p er the HPI and history, otherwise unremarkable. S PECIAL SENSES: Positve for n one. C ONSTITUTIONAL: Positive for n one. E NT: cold Y es. P ositive p er the HPI and history, otherwise unremarkable. R ESPIRATORY: Positive p er the HPI and history, otherwise unremakable.? O PHTHALMOLOGY: Positive for p er the HPI and history, otherwise unremarkable. i tching Y es. E NDOCRINOLOGY: polyuria Y es. P ositive for n one. ? C ARDIOLOGY: Positive for n one. G ASTROENTEROLOGY: Positive for n one. U ROLOGY: difficulty urinating Y es. f requent urination Y es. P ositive for n one. D ERMATOLOGY: dry or sensitive skin Y es. P ositive for p er the HPI and history, otherwise unremakable. N EUROLOGY: memory loss Y es. d izziness Y es. P ositive for n one. H EMATOLOGY/LYMPH: Positive for n one. M USCULOSKELETAL: Positive for n one. P SYCHOLOGY: Positive for n one. A ll other review of systems per the HPI and history, otherwise unremarkable. * Medical History: * Medications: T aking VANICREAM MOISTURIZING CREAM N/A Moisturizing Cream as necessary Apply to external surfaces as often as needed to face, hands, feet or body For daily use by the entire family , Taking FAMOTIDINE 20 mg tablet 1 tab(s) orally 2 times a day , Taking AZELASTINE HYDROCHLORIDE NASAL 137 mcg/inh spray 2 spray(s) intranasally 2 times a day , Taking CETIRIZINE 10 mg tablet 1 tab(s) orally once a day , Taking Ipratropium Alto 0.06 % Solution 2 sprays in each nostril Nasally 2-3 times per day , Taking Triamcinolone Acetonide 0.1 % Ointment 1 devang applied topically as needed , Taking Tadalafil 5 MG Tablet 1 tablet as needed Orally Once a day , Taking Aspercreme Arthritis Pain 1 % Gel as directed Externally , Taking CeraVe Itch Relief 1 % Lotion 1 application as needed Externally Three times a day , Taking Eczema Moisturizing 1 % Lotion as directed Externally , Taking Eucrisa 2 % Ointment 1 application Externally Twice a day , Taking Ketotifen Fumarate 0.035 % Solution 1 drop into affected eye Ophthalmic Twice a day , Taking Saccharomyces boulardii , Taking [place] 3-5-6-7-9 Fatty Acids - Capsule as directed Orally , Taking Refresh Tears 0.5 % Solution as directed Ophthalmic , Taking Astepro 205.5 MCG/SPRAY Solution 2 sprays in each nostril Nasally Once a day , Taking Biotin 5000 MCG Tablet Sublingual as directed Sublingual , Taking Famotidine 20 MG Tablet 1 tab(s) orally 2 times a day , Taking Cetirizine HCl 10 MG Tablet 1 tab(s) orally once a day , Taking Ipratropium Alto 0.06 % Solution 2 spray(s) intranasally 3 times a day , Taking Calcium Carbonate 850 MG TABLET, CHEWABLE 1 TAB(S) CHEWED ONCE A DAY , Notes to Pharmacist: *Please review and pick correct strength-formulation from [place] options. If intended option is not shown, discontinue and re-order from Quick Search*, Taking Multivitamin MULTIPLE VITAMINS CAPSULE 1 CAP(S) ORALLY ONCE A DAY , Notes to Pharmacist: *Please review and pick correct strength-formulation from [employer] options. If intended option is not shown, discontinue and re-order from Quick Search*, Taking Clobetasol Propionate 0.05 % Cream 1 devang applied topically 2 times a day , Taking Tamsulosin HCl 0.4 MG Capsule 1 cap(s) orally once a day , Taking Fluticasone Propionate 50 MCG/ACT Suspension 1 spray(s) in each nostril once a day , Taking Pramipexole Dihydrochloride 0.25 MG Tablet Oral , Not-Taking/PRN Terbinafine HCl 250 MG Tablet 1 tab(s) orally once a day , Not-Taking/PRN Vitamin D3 , Notes to Pharmacist: 500mg *Please review and pick correct strength- formulation from ShotSpotterspan options. If intended option is not shown, discontinue and re-order from Quick Search*, Not-Taking/PRN Loratadine 10 MG Tablet 1 tab(s) orally once a day , Not-Taking/PRN Clindamycin Phosphate 1 % Gel 1 devang applied topically 2 times a day , Not-Taking/PRN Azelastine HCl 137 MCG/SPRAY Solution 2 spray(s) intranasally 2 times a day , Not-Taking/PRN Azelastine HCl 137 MCG/SPRAY Solution 2 spray(s) intranasally 2 times a day Objective: * Vitals: * Examination: G eneral examination: General appearance: p leasant, well-developed, well-nourished , male, in no apparent distress , speaking in full sentences, wearing face covering.? HEENT: c onjunctiva are normal bilaterally. Oral cavity: n ormal, no lesions. Heart: R RR, S1-S2, no murmurs, no rubs, no gallops. Lungs: c lear to auscultation in all lung chávez, no wheezes or crackles. Neurologic exam: u nremarkable. Back: n ormal. Assessment: * Assessment: 1. V asomotor rhinitis - J30.0 (Primary) 2 . A llergic rhinitis, unspecified - J30.9 3 . G ramesh-esophageal reflux disease without esophagitis - K21.9 4 . A topic neurodermatitis - L20.81 5 . E levated blood-pressure reading, without diagnosis of hypertension - R03.0 Plan: * Treatment: 2. A llergic rhinitis, unspecified Continue CETIRIZINE tablet, 10 mg, 1 tab(s), orally, once a day, 30 days, 30, Refills 0. Notes: History of allergic rhinitis with SCIT x 9 years, in the 80's-90's. - Symptoms currently well controlled with daily Zyrtec, no longer using Flonase. - Will revisit in future if symptoms, as above, remain uncontrolled - but he has no desire to resume SCIT 3. G ramesh-esophageal reflux disease without esophagitis Continue FAMOTIDINE tablet, 20 mg, 1 tab(s), orally, 2 times a day. Notes: History of GERD, with pior EGD studies. - Currently on probiotic and daily Pepcid. Still with frequent symptoms. - Discussed consult with GI, Petey is to discuss referral with his PCP 4. A topic neurodermatitis Continue VANICREAM MOISTURIZING CREAM Moisturizing Cream, N/A, as necessary, Apply to external surfaces as often as needed to face, hands, feet or body, For daily use by the entire family, 30 day(s), 1 lb. (453 g), Refills PRN; C ontinue Triamcinolone Acetonide Ointment, 0.1 %, 1 devang, applied topically, as needed, 7 days, 1, Refills 0. Notes: History of eczema, previously controlled with moisturization and PRN TAC, today reports he has not used a topical steroid in some time. - Continues avoidance of all products with fragrances and dyes and daily bathing and moisturizing. - Continue triamcinolone as-needed, avoiding the face and genitals. 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 E levated blood-pressure reading, without diagnosis of hypertension Notes: BP elevated today without symptoms of urgency or emergency. Continue serial checks and follow-up with PCP * Procedure Codes: G 8427 DOC MEDS VERIFIED W/PT OR RE * Preventive Medicine: Counseling: D iet a s tolerated, Journal dietary and environmental contacts. E xercise C ontinue activity as usual. M edication instruction: W atch for side effects of prescribed medications, Nasal steroid/antihistamine instruction: avoid septum. E ducation: G ENERAL EDUCATION: Our staff spent an additional 30 minutes in direct contact with the patient educating them on their current diagnoses and proper treatment and prevention of symptoms and the proper use of medications, SKIN CARE EDUCATION:, Skin care regimen reviewed with patient, Daily bathing to add moisture to skin, Apply moisturizing cream head-to-toe to lock in moisture within 2 minutes of exiting bath, Avoid fragrances, dyes, preservatives in personal care products, Use topical steroids PRN to active lesions, Avoid prescribed steroid use on the face and other thin skin. E ducation 2: A RC EDUCATION: Our staff discussed the appropriate allergen avoidance measures and medication utilization including upper airway hygiene with daily nasal washes given the patient's clinical status and diagnoses. P atient education material sent to portal? Y es C are goal follow up plan BMI management provided Y es Above Normal BMI Follow-up D ietary management education, guidance, and counseling B P Management: LIFESTYLE RECOMMENDATION: H ypertension education REFERRAL TO ALTERNATIVE / PRIMARY CARE PROVIDER: R teraerral to general practitioner * Follow Up: 6 Months (Reason: Evaluation and Management) * Billing Information: * Visit Code: 93305 Office Visit, Est Pt., Level 4. Modifiers: 25 * Procedure Codes: G8427 DOC MEDS VERIFIED W/PT OR RE. * Electronic signature of Mila Aguirre DNP, FNP-C on 02/25/2025 at 08:21 AM STOCK BLENDER Sign off status: Pending * Provider: VIRI FarrarC Date: 0 12/22/2024 Generated for Darcy robles/Mariola/Calebsmitting on: 1 04/27/2024 08:21 AM STOCK BLENDER History and Physical Notes * HPI (History of Present Illness) Category Sub-Category Detail Notes Category Not es *Introduction HPI: William Angelo Kamaljit aragon Jr., a 78-year-old male with past medical history significant for BPH, GERD, MOE, and ARC previously on SCIT who returns for interval evaluation and management. He is alone for today's visit. Petey returns today reporting worsening nasal drainage. He admits to being out of ipratropium bromide, though feels he has had side effects from sertraline that was recently prescribed, which he feels worsened his drainage. At a prior visit he stated that ipratropium bromide made a huge difference. He states his GERD feels like it is well controlled on Pepcid BID. He has not had GI evaluation in years. He does report occasional coughing while eating, unclear on if he feels it is difficult to swallow at time. No associated systemic symptoms, no clear trigger. His allergy symptoms are also under control, previously on SCIT for 9 years. He is taking Zyrtec daily with benefit. In terms of his rash, he was previously seen with a flat rash on his arms. Is seen at pain clinic and thought to be related to new medication from them. He was seen by dermatology who had him on an array of creams. Has since resolvedand he continues to follow with dermatology. Historically, he gets a lot of mucous around back of throat. Feels like it slimes over. He has a hard time eating and breathing at the same time due to the phlegm. Sometimes goes into my wind-pipe and I have a coughing fit, to bring it back up. Symptoms have been present his whole life. Does not happen with each encounter. He denies any issues swallowing. No history of food sticking. He also has history of stomach problems in the 70's-80's. 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 No other issues and has not followed since. He also has history of eczema, currently well controlled with moisturization and PRN topical TAC. Additionally, he reports coming in contact with poison rosangela two weeks ago. He is applying Calmoseptine as-needed. Today, he reports no fevers, chills, night sweats or other constitutional symptoms Examination Category Sub-Category Detail Notes Category Not es General examination HEENT: conjunctiva are dane l bilaterally Heart: RRR, S1-S2, no murmu rs, no rubs, no gallops Lungs: clear to auscultatio n in all lung chávez, no wheezes or crackles General appearance: pleasant, well-devel oped, well-nourished , male, in no apparent distress , speaking in full sentences, wearing face covering Neurologic exam: unremarkable Oral cavity: normal, no lesions Back: normal
--- OUTSIDE RECORDS SUMMARY | 2025-01-19 11:30 | XMS_ITS ---
Author Organization [facility] [place] ([address]) Address [address] [facility] [address] [place] [address] Care Team Providers Care Wireless Communications Engineer Name Role Phone Juarez Ahuja Primary Care Provider UnavailHeath Faust Unavailable [phone] Mila Aguirre Unavailable [phone] REASON FOR VISIT ARC follow-up Social History Sex Assigned At : Social History Observation Description Sex Assigned At Male Encounters Encounter Location Date Provider Diagnosis [facility] [address] [place] [address] 01/19/2025 Mila Aguirre Plan Of Treatment Next Appt Details Provider Name:Mila cheung, 07/27/2025 07:30:00 AM, [address] [facility] [address], [place], [address], Progress Notes * William COWAN JrDOB:[birth year] (79 yo M)Acc No.[id number]:01/19/2025 Progress Notes Patient: Monie William TOUSSAINT Jr Provider: Fabian Aguirre DNP MEAT CUTTER-C :1945 A ge:79 Y S ex:Male Date:01/19/2025 [facility] [id number] Pcp:Juarez Ahuja Subjective: * Chief Complaints: * 1 . ARC follow-up. * Medical History: Objective: * Vitals: Assessment: Plan: * Treatment: * Billing Information: * Visit Code: * Procedure Codes: * Electronic signature of Mila Aguirre DNP, FNP-C on 02/25/2025 at 08:21 AM END MAKER Sign off status: Pending * Provider: VIRI Farrar-C Date: Generated for Darcy robles/Mariola/Calebsmdany on: 04/27/2024 08:21 AM END MAKER
--- NOTE | ~2025-02-25 | NM_ITS ---
EXAMINATION: NM josse stress w perfusion DATE: 02/25/2025 13:03 INDICATION: Shortness of breath TECHNIQUE: Rest images were obtained following intravenous administration of 11 mCi Tc99m tetrofosmin (Myoview). The patient was infused intravenously with Lexiscan (Regadenoson). Then, 31 mCi Tc99m tetrofosmin (Myoview) was administered intravenously, and stress images were obtained. Data was reconstr ucted into short axis and horizontal and vertical long axis SPECT images. Gated SPECT images were also obtained. COMPARISON: None. FINDINGS: There is a small mild nonreversible perfusion defect at the mid inferoseptal segment consistent with infarct. No definitive reversible ischemia. There is normal left ventricular chamber size, wall motion and ejection fraction. Left ventricular ejection fraction measures >70%. IMPRESSION: 1. 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 No reversible ischemia. 2. Left ventricular ejection fraction measuring >70%. Reviewed, dictated and finalized at location A. [employer] IMPRESSION: 1. 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 No reversi ble ischemia. 2. Left ventricular ejection fraction measuring >70%.
--- OUTSIDE RECORDS SUMMARY | 2025-02-25 08:21 | XMS_ITS | Data Portability ---
Author Organization [facility] (11) Address [address] [place] [address] Care Team Providers Care Oil Burner Installer Name Role Phone CORI PAVON Referring Provider Assessment No assessment recorded. Plan of Treatment Reminders Order Date Submit Date Provider Last Modified By Organization Details Last Modified Time Details Appointments None record ed. Lab None record ed. Referral None record ed. Procedures None record ed. Surgeries None record ed. Imaging None record ed. Medication Orders None record ed. Patient TargetsNo targets recorded. Patient InstructionsNo instructions recorded. Reason for Referral None Reported. Procedures Surgical History Date Name Laterality Status Provider Name and Address Organization Details Recorded Time 01/22/2018 Sleep Study completed Vinay Haddad [address] [address], [place], [address], [facility] 01/23/2018 22:35:04 Imaging Results None recorded. Procedure Notes None recorded. Medical Equipment None Reported. Medications Name Sig Start Date Stop Date Status Note LastModified by Organization Details LastModified Time tamsulosin 0.4 mg capsule active Not Available Not Available N ot Available triamcinolone acetonide 0.1 % topical ointment active Not Available Not Available Not Available fluticasone propionate 50 mcg/actuation nasal spray,suspensio n active Not Available Not Available Not Available clotrimazole 1 % topical cream active Not Available Not Availa ble Not Available Vitals Date Recorded Body height Body mass index (BMI) Body weight Provider Name and Address Organization Details Last Updated DateTime 01/22/2018 167.64 cm 26.3 kg/m2 01467.56 g Jeremiah Javier [facility] 01/22/2018 12:46:52 Social History None recorded. Functional Status None recorded. Mental Status None recorded. Family History Nothing Reported. Medical History No medical history recorded. Past Encounters Encounter ID Performer Location Encounter Start Date Encounter Closed Date Diagnosis/Indication Diagnosis SNOMED-CT Code Diagnosis ICD10 Code Diagnosis IMO Codes Diagnosis Note [id number] [facility] [place], [facility] CSI 11) [id number] [facility] [address] [place] [address] 01/22/2018 12:16:23 01/23/2018 22:09:58 Obstructive sleep apnea of adult 0668738821 103 G47.33 [id number] [facility] CSI (16) [id number] [facility] [address] [place] [address] 06/04/2018 11:42:53 06/04/2018 12:40:02 Health Concerns Section Related Observation LastModified by Organization Detai ls LastModified Time None Recorded Concern Status LastModified by Organization Details LastModified Time None Recorded Advance Directives Directive None Recorded Payers Insurance Date Sequence Insurance Name Policy Number Policy Vidal Covered Member ID Vidal Member ID Guarantor Name 06/04/2018 1 [facility] (MEDICARE REPLACEMENT HMO) [id number] William K Camryn [id number] William Cowan Notes Date Note Type Note Provider Name and Address Organization Details Recorded Time 8 text/html HST SetupReported by PatientEquipment InstructionsFor hst set up, patient reportsdemonstrated to patient how to set up home sleep test device. the patient was able to return demonstration with out difficulty.andthe patient is returning the device the following morning.. Anish Negro MD [facility] [id number] [address] [place] [address], [place], [address], [place] - [facility] 01/24/2018 10:42:36 9 text/html pt picked up trial provent pack. instruction went well. bg Nathaly ryan, [place] - [facility] 06/04/2018 12:39:09
--- OUTSIDE RECORDS SUMMARY | 2025-02-25 08:21 | XMS_ITS | Clinical Summary ---
Author Organization [facility] Address [address] [place] [address] Care Team Providers Care Rail Grinder Name Role Phone Juarez Ahuja DO Primary Care Provider [phone] [facility],non-owned Affiliates and Associated Physician Practices is amultiple site organization consisting of ambulatory clinics and hospital sitesin [place], [place], [place] and [place]. This disclosure is being madepursuant to the Care Everywhere program and may not contain all information available regarding this patient. Last updated 18.[facility] Allergies Active Allergy Reactions Criticality Noted Date Comments Penicillins Rash Low 02/25/2013 Medications * Be aware that medications may not be up to date on this document. Alwaysverify current medications with the patient. tamsulosin (Flomax) 0.4 MG capsule Take 1 (one) capsule by mouth at bedtime At the same time every day after a meal. Active terbinafine (LamISIL) 250 MG tablet Take 1 (one) tablet by mouth once daily For 7 days on/once a month for toenail fungus Active Multiple Vitamin (MULTI-VITAMIN DAILY PO) Take 1 tablet by mouth once daily Active CALCIUM PO Take 1 tablet by mouth once daily Active [place]-3 Fatty Acids (fish oil delayed release) 1000 MG capsule Take 2 (two) capsules by mouth daily with food Active Famotidine (PEPCID PO) Take 20 mg by mouth once daily Active oxyCODONE-acetam inophen (Percocet) 5-325 MG tabletIndication s:Benign prostatic hyperplasia with weak urinary stream Take 1 (one) tablet by mouth every 6 hours as needed for Pain 6 tablet 3 Active sulfamethoxazole -trimethoprim (Bactrim DS; Septra DS) 800-160 MG tablet Take 1 (one) tablet by mouth every 12 hours 6 tablet 3 Active Active Problems Problem Noted Date Diagnosed Date Benign prostatic hyperplasia with weak urinary s tream 08/17/2022 Social History Tobacco Use Types Packs/Day Years Used Date Smoking Tobacco: Never Smokeless Tobacco: Never Alcohol Use Standard Drinks/Week Comments Yes 0 (1 standard drink = 0.6 oz pur e alcohol) 3 drinks/week Hunger Vital Sign Answer Date Recorded Within the past 12 months, y ou worried that your food would run out before you got the money to buy more. Never true 08/19/19 23 Within the past 12 months, t he food you bought just didn't last and you didn't have money to get more. Never true 08/18/2022 Sex and Gender Information Value Date Recorded Sex Assigned at Not on file Legal Sex Male 6:25 AM TELEPHONE INTERVIEWER Gender Identity Not on file Sexual Orientation Not on file Last Filed Vital Signs Vital Sign Reading Time Taken Comments Blood Pressure 139/63 08/18/2022 7:35 AM CDT Pulse 66 08/18/2022 7:35 AM CDT Temperature 36.4 C (97.5 F) 08/18/2022 7:35 AM CDT Respiratory Rate 18 08/18/2022 7:35 AM CDT Oxygen Saturation 97% 08/18/2022 7:35 AM CDT Inhaled Oxygen Concentration - - Weight 76.7 kg (169 lb) 08/17/2022 1:20 PM CDT Height 167.6 cm (5' 6) 08/17/2022 1:20 PM CDT Body Mass Index 27.28 08/17/2022 1:20 PM CDT Plan of Treatment Health Maintenance Due Date Last Done Comments MEDICARE AWV 12 MONTHS 1945 HEPATITIS C SCREENING 07/02/1964 DTAP/TDAP/TD VACCINES (1 - Tdap) 1965 PNEUMOCOCCAL VACCINE 50+ (1 of 1 - PCV) 1996 ZOSTER VACCINE (1 of 2) 1996 Respiratory Syncytial Virus (RSV) Vaccine Pt: or over 60 yrs (1 - 1-dose 75+ series) 2021 DEPRESSION SCREENING 04/16/2024 COVID-19 VACCINE (2023-2 5 season) 2024 INFLUENZA VACCINE (#1) 2024 HEPATITIS B VACCINE Aged Out No longe r eligible based on patient's age to complete this topic HIB VACCINE Aged Out No longer eligi ble based on patient's age to complete this topic HPV VACCINE Aged Out No longer eligi ble based on patient's age to complete this topic MENINGOCOCCAL (Group B) VACC INE SHARED DECISION-MAKING Aged Out No longer eligibl e based on patient's age to complete this topic MENINGOCOCCAL GROUPS A/C/Y/W VACCINE Aged Out No longer eligible b ased on patient's age to complete this topic Insurance [facility] MEDICARE Advance Directives * Full Code (Latest Code Status on File) Date Activated Date Inactivated Comments 08/17/2022 3:34 PM 08/18/2022 12:35 PM Care Teams Rail Grinder Relationship Specialty Start Date End Date Juarez Ahuja DO PCP - General Internal Medicine 08/15/22
--- OUTSIDE RECORDS SUMMARY | 2025-02-25 08:22 | XMS_ITS | Clinical Summary ---
Author Organization [facility] Address [address] [facility] [place] [address] Care Team Providers Care Physical Integration Practitioner Name Role Phone Monica Rivas NP Primary Care Provider [phone] Allergies Active Allergy Reactions Criticality Noted Date Comments Penicillin G Potassium In D5w Rash Medium 2022 Penicillin V Rash Medium 07/01/2008 Medications ipratropium (ATROVENT) 42 mcg (0.06 %) nasal sprayIndications :rhinorrhea Administer 2 sprays into each nostril 3 (three) times a day 3 Active fluticasone propionate (FLONASE) 50 mcg/actuation nasal sprayIndications :Allergic Rhinitis Administer 1 spray into each nostril nightly Active azelastine (ASTELIN) 137 mcg (0.1 %) nasal sprayIndications :Seasonal Allergic Rhinitis Administer 2 sprays into each nostril 2 (two) times a day 3 Active clotrimazole 1 % cream Apply 1 Application topically as needed (eczema) Active triamcinolone (KENALOG) 0.1 % ointment Apply 1 Application topically as needed for irritation or rash 3 Active tamsulosin (FLOMAX) 0.4 mg extended release capsuleIndicatio ns:benign prostatic hyperplasia with lower urinary tract sx,prostate Take 1 capsule (0.4 mg total) by mouth daily after lunch Active terbinafine (LamiSIL) 250 mg tabletIndication s:Onychomycosis, Skin/Soft Tissue Infection Take 1 tablet (250 mg total) by mouth as needed (7 pills a month) Active calcium carbonate (OS-ZHEN) 1,250 mg (500 mg elemental) tabletIndication s:supplement Take 1 tablet (1,250 mg total) by mouth every morning Active Bacillus coagulans (PROBIOTIC, B. COAGULANS, ORAL)Indications :gut health Take 1 tablet by mouth every morning Active ACID WAFER LINE WORKER, FAMOTIDINE, ORALIndications: heartburn Take 2 tablets by mouth every morning Active ibuprofen 200 mg tab/cap Take 1 tablet/capsule (200 mg total) by mouth every 6 (six) hours as needed for pain Active Prolensa 0.07 % dropsIndications :pre-op 4 Active moxifloxacin (VIGAMOX) 0.5 % ophthalmic solutionIndicati ons:pre-op 4 Active prednisoLONE acetate (PRED FORTE) 1 % ophthalmic suspension Administer 1 drop into the right eye 4 (four) times a day 5 mL 1 4 Active Active Problems Problem Noted Date Diagnosed Date MOE (obstructive sleep apnea) 04/11/2023 Resolved Problems Problem Noted Date Diagnosed Date Resolved Date Nuclear sclerotic cataract of right eye 04/18/2023 05/09/2023 Surgical History Surgery Date Site/Laterality Comments COLONOSCOPY 03/16/2023 - 04/15/2023 ESOPHAGOGASTRODUODENOSCOPY 03/16/2023 - 04/15/2023 BACK SURGERY mass removal unknown date CATARACT EXTRACTION 04/16/2010 - 04/15/2011 Left Medical History Medical History Date Comments Sleep apnea Family History Medical History Relation Name Comments Anesthesia problems Neg Hx Social History Tobacco Use Types Packs/Day Years Used Date Smoking Tobacco: Never Smokeless Tobacco: Never AUDIT-C Answer Date Recorded Q1: How often do you have a drink containing alc ohol? 2-3 times a week 05/03/2023 Q2: How many drinks containi ng alcohol do you have on a typical day when you are drinking? 1 or 2 05/03/2023 Q3: How often do you have si x or more drinks on one occasion? Never 05/03/2023 Personal Safety Answer Date Recorded Have you ever been in or are you currently in a harmful physical or emotional relationship or is someone making you feel afraid or unsafe? Denies 05/25/2023 Sex and Gender Information Value Date Recorded Sex Assigned at Not on file Legal Sex Male 11:53 PM TELEVISION PARTS TESTER Gender Identity Not on file Sexual Orientation Not on file Last Filed Vital Signs Vital Sign Reading Time Taken Comments Blood Pressure 117/60 05/25/2023 10:50 AM TELEVISION PARTS TESTER Pulse 51 05/25/2023 11:15 AM TELEVISION PARTS TESTER Temperature 36.2 C (97.2 F) 05/25/2023 9:55 AM TELEVISION PARTS TESTER Respiratory Rate 19 05/25/2023 11:15 AM TELEVISION PARTS TESTER Oxygen Saturation 96% 05/25/2023 11:15 AM TELEVISION PARTS TESTER Inhaled Oxygen Concentration - - Weight 77.1 kg (170 lb) 05/03/2023 2:55 PM TELEVISION PARTS TESTER Height 168.9 cm (5' 6.5) 05/03/2023 2:55 PM TELEVISION PARTS TESTER Body Mass Index 27.03 05/03/2023 2:55 PM TELEVISION PARTS TESTER Plan of Treatment Health Maintenance Due Date Last Done Comments Depression Screening 1945 Hepatitis C Screening 1945 DTaP/Tdap/Td Vaccine (1 - Tdap) 1957 Hepatitis B Screening 1964 Pneumococcal vaccine 65+ (1 of 2 - PCV) 1965 Zoster Vaccine (1 of 2) 1996 Well Visit 65+ 07/08/2011 Fall Risk Assessment 05/25/2024 05/25/2023 Influenza Vaccine (#1) 2024 Medical Devices Implanted Type Area Theater Technician Device Identifier Shelf Expiration Date Model / Serial / Lot [employer] Lens Iol Tecnis Smplcty 1-Pc Clr Kinney 16.0 Diopter [id number] - [id number] - [id number] Implanted:Qty: 1 on 05/09/2023 by Kye Ponce MD at [facility] Lens Right: Eye [employer] [id number] 05/06/2025 [id number] / [id number] / 0 Insurance [facility] [place] [address] [facility] Member Subscriber Plan / Payer (Ef fective 2022-Present) Name:William Cowan Jr Relation to Subscriber:Self Name:William Cowan Jr Payer ID:[id number] (NAIC) Type:MEDICARE RISK OTHER Address: [place] [id number] Advance Directives For more information, please contact: [phone] Documents on File Type Date Recorded Patient Medical Staffing Coordinator Expl anation ADVANCE DIRECTIVE 05/09/2023 6:49 AM Power of Supervisor Rough End-Medical * Full Code (Latest Code Status on File) Date Activated Date Inactivated Comments 05/09/2023 6:41 AM 05/09/2023 2:49 PM Care Teams Physical Integration Practitioner Relationship Specialty Start Date End Date Monica Rivas NP PCP - General Nurse Practitioner 01/03/23
--- OUTSIDE RECORDS SUMMARY | 2025-02-25 08:22 | XMS_ITS | Patient Health Record ---
Author Organization [facility] ([address]) Address [address] [place] [address] Care Team Providers Care Conference Services Manager Name Role Phone Juarez Ahuja Primary Care Provider Unavailab Heath Bryant Unavailable [phone] Devin Tinajero Unavailable [phone] Mila Aguirre Unavailable [phone] Allergies Allergen (clinical drug ingredient) Drug/Non Drug Allergy documented on EMR Reaction Allergy Type Onset Date Status penicillin V Penicillin V Potassium rash Drug Allergy Active Reason For Referral Referring Provider First Name Juarez Referring Provider Last Name Leigha Referring Provider Speciality Internal M edicine Referred Organization [facility] Referred Provider Heath Moreno Referred Address [address] [place], [place],[address], Referred Provider Specialty Allergy/Immu nology Referral Priority Routine Reason Dysphagia Referral Organization [facility] Referring Provider First Name Mila Referring Provider Last Name Carla Referring Provider Speciality Allergy/Im munology Referred Provider Delilah Rodriguez Referred Provider Specialty Gastroentero logy Referral Priority Routine Medications Medication SIG (Take, Route, Frequency, Duration) Notes Start Date End Date Status Eczema Moisturizing 1 % as directed Externally Active Azelastine HCl 137 MCG/SPRAY 2 spray(s) intranasally 2 times a day; Duration: 30 day(s) Not-Taking Eucrisa 2 % 1 application Externally Twice a day Active Ketotifen Fumarate 0.035 % 1 drop into affected eye Ophthalmic Twice a day Active Saccharomyces boulardii Active Vitamin D3 500mg *Please review and pick correct strength-formula tion from [employer] options. If intended option is not shown, discontinue and re-order from Quick Search* Not-Taking Loratadine 10 MG 1 tab(s) orally once a day Not-Taking Azelastine HCl 137 MCG/SPRAY 2 sprays in each nostril Nasally Twice a day; Duration: 90 days 01/27/2025 Active Aspercreme Arthritis Pain 1 % as directed Externally Active Clindamycin Phosphate 1 % 1 devang applied topically 2 times a day; Duration: 30 day(s) Not-Taking CeraVe Itch Relief 1 % 1 application as needed Externally Three times a day Active Azelastine HCl 137 MCG/SPRAY 2 spray(s) intranasally 2 times a day; Duration: 90 days Not-Taking Acme 3-5-6-7-9 Fatty Acids - as directed Orally Active Refresh Tears 0.5 % as directed Ophthalmic Active Astepro 205.5 MCG/SPRAY 2 sprays in each nostril Nasally Once a day Active Biotin 5000 MCG as directed Sublingual Active Triamcinolone Acetonide 0.1 % 1 devang applied topically as needed; Duration: 7 days Active Multivitamin MULTIPLE VITAMINS 1 CAP(S) ORALLY ONCE A DAY; Duration: 30 DAY(S) *Please review and pick correct strength-formula tion from [employer] options. If intended option is not shown, discontinue and re-order from Quick Search* Active Clobetasol Propionate 0.05 % 1 devang applied topically 2 times a day; Duration: 14 day(s) Active Ipratropium [place] 0.06 % 2 sprays in each nostril Nasally 2-3 times per day; Duration: 30 days Active Tamsulosin HCl 0.4 MG 1 cap(s) orally once a day; Duration: 30 day(s) Active CETIRIZINE 10 mg 1 tab(s) orally once a day; Duration: 30 days Active Fluticasone Propionate 50 MCG/ACT 1 spray(s) in each nostril once a day; Duration: 30 day(s) Active FAMOTIDINE 20 mg 1 tab(s) orally 2 times a day Active Famotidine 20 MG 1 tab(s) orally 2 times a day Active VANICREAM MOISTURIZING CREAM N/A as necessary Apply to external surfaces as often as needed to face, hands, feet or body For daily use by the entire family; Duration: 30 day(s) Active Cetirizine HCl 10 MG 1 tab(s) orally once a day; Duration: 30 days Active Calcium Carbonate 850 MG 1 TAB(S) CHEWED ONCE A DAY *Please review and pick correct strength-formula tion from [employer] options. If intended option is not shown, discontinue and re-order from Quick Search* Active Tadalafil 5 MG 1 tablet as needed Orally Once a day Active Pramipexole Dihydrochloride 0.25 MG Oral; Duration: 90 Days Active Terbinafine HCl 250 MG 1 tab(s) orally once a day; Duration: 42 day(s) Not-Taking Immunizations Vaccine Route Administration Date Status Comme nts NOC Pneumovax 23 Unknown 01/10/2019 Administered Covid 19 (Pfizer) Unknown 06/10/2020 Administered Covid 19 (Pfizer) Unknown 07/01/2020 Administered FLUZONE High-Dose Quadrivalent Unknown 01/03/2021 Admin istered Social History Tobacco Use: Social History Observation Description Date Details (start date - stop date) Never Smoker NA - NA Sex Assigned At : Social History Observation Description Sex Assigned At Male Tobacco Control (Standard) Question Answer Notes Tobacco use: Nonsmoker AUDIT-C (Standard) Question Answer Notes Did you have a drink containing alcohol in the p ast year? 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) Active confirmed Problem Congenital spondylolisthesis (22630551) Congenital spondylolisthesis (Q76.2) Active confirmed Problem Elevated blood pressure reading without diagnosis of hypertension (745404596) Elevated blood-pressure reading, without diagnosis of hypertension (R03.0) Active confirmed Problem Allergic rhinitis (18435002) Allergic rhinitis, unspecified (J30.9) Active confirmed Problem Benign prostatic hypertrophy without outflow obstruction (680862602) Benign prostatic hyperplasia without lower urinary tract symptoms (N40.0) Active confirmed Vital Signs Blood pressure diastolic 64 mm Hg 01/27/2025 Oximetry 95 % 01/27/2025 Height 66.5 in 01/27/2025 Blood pressure systolic 123 mm Hg 01/27/2025 Weight 173.6 lbs 01/27/2025 BMI 27.6 kg/m2 01/27/2025 Encounters Encounter Location Date Provider Diagnosis [facility] [address] [place] [id number] 01/27/2025 Mila Aguirre Vasomotor rhinitis J 30.0 ; Allergic rhinitis, unspecified J30.9 ; Gastro-esophageal reflux disease without esophagitis K21.9 ; 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 and Elevated blood-pressure reading, without diagnosis of hypertension R03.0 [facility] [address] [place] [phone] 06/23/2024 Mila Aguirre Vasomotor rhinitis J 30.0 ; Allergic rhinitis, unspecified J30.9 ; Gastro-esophageal reflux disease without esophagitis K21.9 ; 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 and Elevated blood-pressure reading, without diagnosis of hypertension R03.0 [facility] [address] [place] [address] 01/27/2025 Mila Aguirre [facility] [address] [place] [address] 12/22/2024 Devin Tinajero Assessments Encounter Date Diagnosis (ICD Code) Assessment Notes Treatment Notes Treatment Clinical Notes Section Notes 06/23/2024 Vasomotor rhinitis (ICD-10 - J30.0) Symptoms of [...] 6 months for further evaluation and management 06/23/2024 Allergic rhinitis, unspecified (ICD-10 - J30.9) History of allergic rhinitis with SCIT x 9 years, in the s-s. - Symptoms currently well controlled with daily Zyrtec, no longer using Flonase. - Will revisit in future if symptoms, as above, remain uncontrolled - but he has no desire to resume SCIT 01/27/2025 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 Using Pepcid prior to meals, which has been minimally beneficial. - Petey recently underwent a sinus surgery in November, which he feels has been beneficial. He is using AStepro OTC with benefit, order sent for azelastine today. - Continue with Pepcid BID due to GERD. It has been many years since Petey last had evaluation with GI. He also reports occasional cough while eating, he is not sure if he notes difficulty swallow. No clear triggers or associated systemic symptoms. I again recommended GI consult, he is to speak to his PCP regarding a referral. He voiced understanding. I am sending this report to his PCP as well. - Follow-up in 6 months for further evaluation and management 01/27/2025 Allergic rhinitis, unspecified (ICD-10 - J30.9) History of allergic rhinitis with SCIT x 9 years, in the -. - Symptoms currently well controlled with daily Zyrtec, no longer using Flonase. - Will revisit in future if symptoms, as above, remain uncontrolled - but he has no desire to resume SCIT 01/27/2025 Gastro-esophageal reflux disease without esophagitis (ICD-10 - K21.9) History of GERD, with pior EGD studies. - Currently on probiotic and daily Pepcid. Still with frequent symptoms. - Discussed consult with GI, Petey is to discuss referral with his PCP 06/23/2024 Gastro-esophageal reflux disease without esophagitis (ICD-10 - K21.9) History of GERD, with pior EGD studies. - Currently on probiotic and daily Pepcid. Still with frequent symptoms. - Discussed consult with Petey FLORES is to discuss referral with his PCP 06/23/2024 Atopic neurodermatitis (ICD-10 - L20.81) History of eczema, previously controlled with moisturization and PRN TAC, today reports he has not used a topical steroid in some time. - Continues avoidance of all products with fragrances and dyes and daily bathing and moisturizing. - Continue triamcinolone as-needed, avoiding the face and genitals. Slated for follow-up with his regulatory affairs assistant 01/27/2025 Atopic neurodermatitis (ICD-10 - L20.81) History of eczema, previously controlled with moisturization and PRN TAC, today reports he has not used a topical steroid in some time. - Continues avoidance of all products with fragrances and dyes and daily bathing and moisturizing. - Continue triamcinolone as-needed, avoiding the face and genitals. Slated for follow-up with his regulatory affairs assistant 01/27/2025 Elevated blood-pressure reading, without diagnosis of hypertension (ICD-10 - R03.0) BP elevated today without symptoms of urgency or emergency. Continue serial checks and follow-up with PCP 06/23/2024 Elevated blood-pressure reading, without diagnosis of hypertension (ICD-10 - R03.0) BP elevated today without symptoms of urgency or emergency. Continue serial checks and follow-up with PCP Plan Of Treatment Next Appt Details Provider Name:Mila cheung, 07/27/2025 07:30:00 AM, [address] [facility], [address], [address], Insurance Providers Payer Name Payer Address Payer Phone Subscriber Number Group Number Insured Name Patient Relationship to Insured Coverage Start Date Coverage End Date [facility] Medicare Advantage [address] [address] [place] [address] [id number] Michael Cowann Self - patient is the insured Medical (General) History Medical History History ICD Code Benign prostatic hyperplasia without low er urinary tract symptoms N40.0 Congenital spondylolisthesis Q76.2 Surgical History Surgery Date(Month/Year) Transurethral resection of the prostate 08/2022 cataract surgery 2023 egd 2023 septoplasty 11/2024
--- NOTE | 2025-02-25 08:41 | EST_ITS ---
Patient Info Name: William Cowan Age: 79 years : 1945 Gender: Male Ht: 66 in Wt: 175 lbs BSA: 1.94 m2 HR: 45 bpm BP: 128 / 66 mmHg Exam Date: 02/25/2025 8:41 AM Patient Status: O Admit Date: 02/25/2025 Exam Type: CA stress josse w NM A regadenoson stress test was performed. Staff Referring Physician: Selena Martinez Attending Provider: Selena Martinez Exercise Technologist: Jojo Flood Exercise Physician: Angel Orozco DO Summary 1. 1. Negative lexiscan stress test for ischemic ST changes by ECG criteria. 2. 2. Stable hemodynamics throughout the test. 3. 3. Nuclear scan to follow and will be reported separately. Please correlate with it. 4. 4. Patient informed of the above results. Protocol: Lexiscan Stress ECG Details Stage: REST Duration (min): 0 min : 41 sec HR (bpm): 46 SBP (mmHg): 128 DBP (mmHg): 66 Stage: REST Duration (min): 3 min : 55 sec HR (bpm): 48 SBP (mmHg): 128 DBP (mmHg): 66 Stage: STAGE 1 Duration (min): 1 min : 0 sec HR (bpm): 55 SBP (mmHg): 129 DBP (mmHg): 66 Stage: RECOVERY Duration (min): 1 min : 0 sec HR (bpm): 76 SBP (mmHg): 129 DBP (mmHg): 66 Stage: RECOVERY Duration (min): 2 min : 0 sec HR (bpm): 69 SBP (mmHg): 129 DBP (mmHg): 66 Stage: RECOVERY Duration (min): 3 min : 0 sec HR (bpm): 69 SBP (mmHg): 125 DBP (mmHg): 60 Stage: RECOVERY Duration (min): 3 min : 17 sec HR (bpm): 66 SBP (mmHg): 125 DBP (mmHg): 60 Rest HR: 48 bpm Peak HR: 76 bpm Rest Sys BP: 128 mmHg Peak Sys BP: 129 mmHg Max Pred HR: 142 bpm % Max Pred HR: 54 % Target HR: 121 bpm Max RPP: 9,804 bpm*mmHg Termination Reason: Completed protocol Cardiac Symptoms: Shortness of breath Total Time: 1 min : 0 sec Rest Aponte BP: 66 mmHg Peak Aponte BP: 66 mmHg Total Dose: 0.4 mg Resting ECG Sinus bradycardia. Stress ECG No ST changes. Arrhythmias None. Report Signatures
== END 2025-02-25 08:16 | disposition home or self-care (01) ==
PROVIDERS: PCP Internal Medicine
DX: I21.19 ST elevation (STEMI) myocardial infarction involving other coronary artery of inferior wall (principal)
CPT/HCPCS: 78452; 93017; A9502; J2785

== ENCOUNTER 2025-03-02 09:36 | Outpatient (CLI) | payer OTHER, SELFPAY ==
--- NOTE | 2025-03-02 09:47 | ECHO_ITS ---
Patient Info Name: William Cowan Age: 79 years : 1945 Gender: Male Ht: 26 in Wt: 386 lbs BSA: 2.05 m2 HR: 51 bpm BP: 132 / 73 mmHg Heart Rhythm: Bradycardia Technical Quality: Fair Exam Date: 03/02/2025 9:52 AM Patient Status: O Admit Date: 03/02/2025 Exam Type: CA echo doppler color flow Complete two-dimensional, color flow and Doppler transthoracic echocardiogram is performed. Sales Representative Health Insurance: Selena Gatica Attending Provider: Selena Martinez Summary 1. Complete two-dimensional, color flow and Doppler transthoracic echocardiogram is performed. 2. Left ventricular chamber dimension is normal. 3. Left ventricular systolic function is normal, estimated at 60-65. 4. The left ventricular diastolic function is grade I diastolic dysfunction. 5. E/e' 8 is minimally elevated. 6. There is trace mitral valve regurgitation. 7. There is moderate tricuspid valve regurgitation. 8. No pulmonary hypertension, estimated pulmonary arterial systolic pressure is 32 mmHg. Left Ventricle E/e' 8 is minimally elevated. Left ventricular chamber dimension is normal. Left ventricular systolic function is normal, estimated at 60-65. The left ventricular diastolic function is grade I diastolic dysfunction. Right Ventricle Right ventricular chamber dimension is normal. Right ventricular systolic function is normal and with normal TAPSE 2.1 cm. Left Atria Left atrial chamber dimension is normal. Right Atria Right atrial chamber dimension is normal. Aortic Valve The aortic valve is trileaflet. There is no aortic valve stenosis. There is no aortic valve regurgitation. Pulmonic Valve There is no pulmonic regurgitation. Mitral Valve There is no mitral valve stenosis. There is trace mitral valve regurgitation. Tricuspid Valve There is moderate tricuspid valve regurgitation. No pulmonary hypertension, estimated pulmonary arterial systolic pressure is 32 mmHg. Pericardium/Pleural There is no pericardial effusion. Inferior Vena Cava Normal inferior vena cava with >50% collapse upon inspiration consistent with normal right atrial pressure, 5 mmHg. Aorta The aortic root size at the sinus of Valsalva is normal. Left Ventricular Outflow Tract Name Value Normal LVOT 2D LVOT Diameter 2.0 cm LVOT Doppler LVOT Peak Velocity 106 cm/s LVOT Peak Gradient 5 mmHg LVOT Mean Gradient 2 mmHg LVOT VTI 23 cm LVOT VTI/AV VTI Ratio 0.8 LVOT Stroke Volume 72 ml LVOT CO 3.5 l/min LVOT CI 1.7 l/min/m2 Pulmonic Valve Name Value Normal RVOT Doppler RVOT Peak Velocity 62 cm/s RVOT Peak Gradient 2 mmHg PV Doppler PV Peak Velocity 95 cm/s PV Peak Gradient 4 mmHg Mitral Valve Name Value Normal MV Diastolic Function MV E Peak Velocity 84 cm/s MV A Peak Velocity 85 cm/s MV E/A 1.0 MV Decel Time (PW) 261 ms MV Annular TDI MV E/e' (Septal) 9.3 MV E/e' (Lateral) 8.4 MV E/e' (Average) 8.8 Tricuspid Valve Name Value Normal TV Regurgitation Doppler TR Peak Velocity 259 cm/s TR Peak Gradient 21 mmHg Estimated PAP/RSVP RA Pressure 5 mmHg <=5 PA Systolic Pressure 32 mmHg <36 RV Systolic Pressure 32 mmHg <36 TV Annular TDI TV Lateral Madie s' Velocity 13.5 cm/s >=9.5 Aorta Name Value Normal Ascending Aorta Ao Root Diameter (MM) 3.8 cm Ao Root Diam Index (MM) 1.8 cm/m2 Aortic Valve Name Value Normal AV Doppler AV Peak Velocity 124 cm/s AV Peak Gradient 6 mmHg AV Mean Gradient 3 mmHg AV VTI 30 cm AV Area (Cont Eq VTI) 2.4 cm2 >=3.0 AV Area (Cont Eq Rom) 2.7 cm2 AV DI (Rom) 0.86 AV Regurgitation 2D LVOT Area 3.2 cm2 Ventricles Name Value Normal LV Dimensions 2D/MM IVS Diastolic Thickness (2D) 1.0 cm 0.6-1.0 LVID Diastole (2D) 4.4 cm 4.2-5.8 LVIW Diastolic Thickness (2D) 1.0 cm 0.6-1.0 LVID Systole (2D) 3.0 cm 2.5-4.0 LVOT Diameter 2.0 cm LV Mass (2D Cubed) 146.08 g 88.00-224.00 LV Mass Index (2D Cubed) 71 g/m2 49-115 Relative Wall Thickness (2D) 0.43 <=0.42 LV Fractional Shortening/Ejection Fraction 2D/MM LV Fractional Shortening (2D) 32 % 25-43 LV EF (2D Teichholz) 60 % LV Diastolic Volume (4C MOD) 115 ml LV EF (4C MOD) 80 % LV Diastolic Volume (2C MOD) 62 ml LV EF (2C MOD) 68 % LV Diastolic Volume (BP MOD) 85 ml 62-150 LV Diastolic Volume Index (BP MOD) 41 ml/m2 34-74 LV Systolic Volume (BP MOD) 22 ml 21-61 LV Systolic Volume Index (BP MOD) 11 ml/m2 11-31 LV EF (BP MOD) 74 % 52-72 LV Diastolic Length (4C) 8.2 cm LV Systolic Length (4C) 6.6 cm LV Stroke Volume (4C MOD) 92 ml Atria Name Value Normal LA Dimensions LA Dimension (MM) 4.2 cm 3.0-4.0 LA Volume (4C A-L) 52 ml LA Volume (BP A-L) 56 ml RA Dimensions RA Area (4C) 20.9 cm2 <=18.0 Report Signatures
== END 2025-03-02 09:37 | disposition home or self-care (01) ==
PROVIDERS: PCP Internal Medicine
DX: I51.89 Other ill-defined heart diseases (principal); I36.1 Nonrheumatic tricuspid (valve) insufficiency; E78.00 Pure hypercholesterolemia, unspecified
CPT/HCPCS: 93306